=== PATIENT | female | born 2005 | race Caucasian/White ===

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

== ENCOUNTER 2023-01-04 12:04 | Outpatient (CLI) | payer SELFPAY ==
[2023-01-06 11:30] LABS: TB Interpretation Negative (Negative); TB1 Ag minus Nil 0.01 IU/ml
[2023-01-06 12:10] LABS: HBs Antibody, Quant 3.5 mIU/mL (See Note); Hepatitis B Surface Ab Negative (See Note)
== END 2023-01-04 12:05 | disposition home or self-care (01) ==
LOC: LBO 12:06
PROVIDERS: Visit Provider Nurse Practitioner Family
DX: Z02.1 Encounter for pre-employment examination (principal); Z11.59 Encounter for screening for other viral diseases; Z11.1 Encounter for screening for respiratory tuberculosis
CPT/HCPCS: 36415; 86706; 86480

== ENCOUNTER 2023-04-01 10:05 | Emergency (ER) | payer MEDICAID, SELFPAY ==
[2023-04-01 10:09] VITALS: BP 124/75; PULSE 117; RESP 18; TEMP 37; O2SAT 99
--- NOTE | 2023-04-01 10:55 | ED.GENADUL_ITS ---
Discharge Plan Disposition Patient Disposition: Home Discharge Details Clinical Impression: Pharyngitis Primary Care Provider: Unknown,Unknown ED Provider: Baltazar Eller Home Meds and New Rx's Prescriptions: Continued acetaminophen [Tylenol Extra Strength] 500 mg tablet 500 mg PO Q4H PRN (DME) Space Chamber Plus 1 EACH spacer 1 ea Miscellaneous Q4H PRN Qty: 2 Rx Instructions: no mask please, use with flovent and albuterol needs 1 mom's and 1 at dad's albuterol sulfate [ProAir HFA] 90 mcg/actuation HFA aerosol inhaler 2 puff Inhalation Q4H PRN Qty: 2 Rx Instructions: 2 puffs with spacer every 4hr as needed and prior to activity albuterol sulfate 90 mcg/actuation aerosol powdr breath activated 2 inh inhalation Q6H PRN (Reason: shortness of breath or wheezing) Qty: 1 1RF Discharge Instructions Instructions: Pharyngitis (ED) Additional Instructions: Please take your vitamin daily. Please take acetaminophen (tylenol) - 650mg every 6 hours by mouth as needed for pain. Please drink plenty of fluids and allow for plenty of rest. Please contact your primary care physician to arrange follow-up. Return to the ER immediately for any worsening or new concerning symptoms. Stand Alone Forms: Work Release Medical Decision Making 17-year-old female who is at 11 weeks here with pharyngitis and myalg ias with subjective fever over the past 2 to 3 days. Patient has few scattered posterior oropharyngeal shallow ulcers. No signs of deep space infection. Patient afebrile, saturating well, no respiratory distress, hemodynamically stable. Rapid COVID testing negative. Rapid flu negative. Plan for PCR COVID testing. Will also check mono. Supportive care recommended. Usual customary discharge instructions reviewed with the patient. HPI General Mode of arrival: ambulatory . Date/Time Provider Initiated Documentation: 04/01/23 10:18 . Limitations to Documentation: no limitations . Information obtained by: patient . HPI Narrative: 17-year-old female presents with chief complaint of sore throat. Patient notes sore throat, myalgias, fatigue and subjective fever over the past few days. No known sick contacts. COVID test negative at home. Related Data Home Medications Medication Instructions Recorded Confirmed inhalational spacing device (Space ##2 06/03/16 04/01/23 Chamber Plus) acetaminophen 500 mg tablet 500 mg PO Q4H PRN 02/23/19 04/01/23 (Tylenol Extra Strength) albuterol sulfate 90 mcg/actuation 2 puff inhalation Q4H PRN ##2 05/14/21 04/01/23 aerosol inhaler (ProAir HFA) albuterol sulfate 90 mcg/actuation 2 inh inhalation Q6H PRN shortness 05/14/21 04/01/23 breath activated powder inhaler of breath or wheezing #1 ea Previous Rx's Medication Instructions Recorded albuterol sulfate 90 mcg/actuation 2 inh inhalation Q6H PRN shortness 05/14/21 breath activated powder inhaler of breath or wheezing #1 ea Allergies Allergy/AdvReac Type Severity Reaction Status Date / Time amoxicillin Allergy Mild Face Verified 04/01/23 10:11 turned bright red, sunburn-like rash on face and leg erythromycin base Allergy rash Verified 04/01/23 10:11 General Stated Complaint: Sorethroat RAFAEL: 4 Review of Systems Constitutional Constitutional: Reports as per HPI and Reports fever(s) ENT Ears, Nose, Mouth, and Throat: Reports as per HPI Respiratory Respiratory: Denies cough PFSH All Active Problems Pharyngitis (Acute) Contraceptive management (Acute) Xulane patch 11/01/2022 Depression (Chronic) hx of meds Anxiety (Chronic) Insomnia (Acute) Hematuria (Acute) History of kidney stones (Acute) Medical History Obstruction of left ureteropelvic junction (UPJ) due to stone Kidney disorder Pt. states I had kidney reflux really bad with I was little (No other description) COVID currently positive as of 12/27/21 very sore throat, and my chest feels really tight with some SOB, no fever. 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 checked by pediatric radiologist at [facility] who felt thymus was normal in size. no further intervention necessary Influenza B Migraine with aura Asthma Surgical History History of appendectomy Tonsillectomy and adenoidectomy Family History Mother Asthma as child Depression Father Migraines Mental disorder depression/anxiety Alcohol abuse Depression Other Migraines PGM Diabetes MGM Alcohol abuse paternal side Essential hypertension PGF, PGGF Personal history of malignant neoplasm MGGM-brain, MGU-ear, Mcousin-nose/brain Mental disorder MGM Stroke PGGF Asthma MGM Dementia Maternal Cousin Vesicoureteral reflux with resulting kidney disease, unilateral Social History Smoking/Tobacco Use Status: Never Smoking risk assessment performed?: Yes Alcohol Intake: never Drug use: Never Substance use type: does not use Education Level: high school Details: 07/19/18- Freshman at [employer] Pets and animals: Yes Pets and animals: dog(s) and fish Current gender identity: female Do you feel safe at home: Yes Do you feel safe in your relationship?: Yes History History 1 Para 1 Hx # Term Pregnancies 1 Multiple births Hx # Pregnancies Ectopic pregnancies AB induced Hx Number of Living Children 1 AB spontaneous Past Pregnancies Del. Date GA/Weeks # Preg Succ Route Wgt Sex Labor Lgth Anesth esia Location [facility] 06/30/21 39 No vaginal 3458.642 g Male 22 hours 44 min region ma [place] Isela CNM Delivery Date: 06/30/21 Last Updated by: Varsha Cabezas Apgars 5/7/9 Exam Const General: cooperative and no acute distress HENMA Mouth: moist mucous membranes Throat: uvula midline, no peritonsillar masses and posterior oropharynx abnormal erythema (mild, few 1mm shallow ulcers); no edema and no exudates Eyes Conjunctivae: normal conjunctivae Sclera: normal sclerae Neck Neck: trachea midline, supple and lymphadenopathy (mild cervical ) Resp Auscultation: clear to auscultation bilaterally, no rales, no rhonchi and no wheezes Cardio Rate: regular rate and not tachycardic Rhythm: regular rhythm Skin General skin exam: no rashes or lesions noted Neuro General: patient alert, patient awake and tone normal Course Vital Signs Vital signs: Vital Signs Temperature 37 C 04/01/23 10:09 Pulse 117 H 04/01/23 10:09 Respiratory Rate 18 04/01/23 10:09 Blood Pressure 124/75 04/01/23 10:09 Pulse Oximetry 99 04/01/23 10:09 Temperature 37 C 04/01/23 10:09 Temperature Source Skin 04/01/23 10:09 Pulse 117 H 04/01/23 10:09 Respiratory Rate 18 04/01/23 10:09 Respiratory Effort Normal, Non-Labored 04/01/23 10:12 Blood Pressure 124/75 04/01/23 10:09 Blood Pressure Position Sitting 04/01/23 10:09 Pulse Oximetry 99 04/01/23 10:09 Oxygen Delivery Method Room Air 04/01/23 10:09 Oxygen Flow Rate 0 04/01/23 10:09 Pain Level 7 04/01/23 10:09 Lab/Test Results Lab/Test Results: 04/01/23 10:20 Tonsil - Not Specified Group A Streptococcus Culture - Pending POC Strep Test-HUAN(Rapid) Start: 04/01/23 10:16 Freq: Status: Active Protocol: Document 04/01/23 10:22 TOBIAS (Rec: 04/01/23 10:22 TOBIAS [id number]) Strep test-HUAN(Rapid)-POC POC-Strep test-HUAN (Rapid) Negative POC-Strep test-HUAN (Rapid) Negative
[2023-04-01 11:16] LABS: Mono Screening Negative (Negative)
[2023-04-01 11:19] LABS: COVID-19 PCR Negative (Negative); Influenza A PCR Negative (Negative); Influenza B PCR Negative (Negative); RSV PCR Negative (Negative)
[2023-04-01 11:30] LABS: Source Nasopharynx
== END 2023-04-01 11:06 | disposition home or self-care (01) ==
PROVIDERS: Emergency Provider Student in an Organized Health Care Education/Training Program
DX: O99.511 Diseases of the respiratory system complicating pregnancy, first trimester (principal); J02.9 Acute pharyngitis, unspecified; Z3A.11 11 weeks gestation of pregnancy
CPT/HCPCS: 81025; 87426; 87637; 99283; 86308; 87081

== ENCOUNTER 2023-04-24 13:15 | Emergency (ER) | payer MEDICAID, SELFPAY ==
[2023-04-24 13:22] VITALS: BP 116/75; PULSE 94; O2SAT 100
[2023-04-24 13:34] LABS: Bilirubin Negative (Negative); Blood Negative (Negative); Clarity Clear (Clear); Glucose Negative (Negative); Ketones >=160 mg/dL (Negative); Leukocyte Esterase Negative (Negative); Nitrite Negative (Negative); Specific Gravity 1.025 (1.005-1.025); Urobilinogen 0.2 mg/dL (Up to 0.2)
--- NOTE | 2023-04-24 14:11 | ED.GENADUL_ITS ---
HPI General Stated Complaint: Abd Prob Mode of arrival: ambulatory. RAFAEL: 3 Date/Time Provider Initiated Documentation: 04/24/23 13:37. Limitations to Documentation: no limitations. Information obtained by: patient and family. HPI Narrative: Time seen was 1:40 PM in bed 7. The patient is a 17-year-old -0-0-1 who is 15 weeks by dates and followed here as a new patient by OB/GYNs. The patient's first was complicated by calcium oxalate renal calculi and she required lithotripsy following her delivery. She presents today with 4 days of left-sided low back pain and left lower pelvic pain. The pain has been associated with hematuria which was demonstrated to me by the patient with a photo from her phone. She states that the pain waxes and wanes. She feels as t maggie it is aggravated by food. Currently the pain is 6 out of 10 in severity and she denies any radiation down her legs. She denies any vaginal bleeding or dysuria. She denies any saddle anesthesia. She denies any fevers or chills. She denies any abdominal cramps or spotting. She is not associated nausea and vomiting. She states that her previous renal colic was treated with Flomax and that she did strain her urine and was found to have calcium oxalate stones. She has been taking acetaminophen with minimal relief. Her last dose was last night. Currently pain is 6 out of 10 in severity. She denies any chest pain, numbness tingling or weakness. Related Data Home Medications Medication Instructions Recorded Confirmed inhalational spacing device (Space ##2 06/03/16 04/01/23 Chamber Plus) acetaminophen 500 mg tablet 500 mg PO Q4H PRN 02/23/19 04/24/23 (Tylenol Extra Strength) albuterol sulfate 90 mcg/actuation 2 puff inhalation Q4H PRN ##2 05/14/21 04/24/23 aerosol inhaler (ProAir HFA) albuterol sulfate 90 mcg/actuation 2 inh inhalation Q6H PRN shortness 05/14/21 04/24/23 breath activated powder inhaler of breath or wheezing #1 ea hydrocodone 2.5 mg-acetaminophen 1 tab PO Q6H PRN pain not releaved 04/24/23 325 mg tablet by acetaminophen #20 tabs hydrocodone 5 mg-acetaminophen 325 1 tab PO Q6H PRN pain not releaved 04/24/23 mg tablet by acetaminophen #10 tabs ondansetron 4 mg disintegrating 4 mg PO Q4H PRN 3 doses #14 tabs 04/24/23 tablet sertraline 25 mg tablet (Zoloft) 25 mg PO DAILY 04/24/23 04/24/23 tamsulosin 0.4 mg capsule (Flomax) 0.4 mg PO QHS PRN #14 caps 04/24/23 Previous Rx's Medication Instructions Recorded albuterol sulfate 90 mcg/actuation 2 inh inhalation Q6H PRN shortness 05/14/21 breath activated powder inhaler of breath or wheezing #1 ea hydrocodone 2.5 mg-acetaminophen 1 tab PO Q6H PRN pain not releaved 04/24/23 325 mg tablet by acetaminophen #20 tabs hydrocodone 5 mg-acetaminophen 325 1 tab PO Q6H PRN pain not releaved 04/24/23 mg tablet by acetaminophen #10 tabs ondansetron 4 mg disintegrating 4 mg PO Q4H PRN 3 doses #14 tabs 04/24/23 tablet tamsulosin 0.4 mg capsule (Flomax) 0.4 mg PO QHS PRN #14 caps 04/24/23 Allergies Allergy/AdvReac Type Severity Reaction Status Date / Time amoxicillin Allergy Mild Face Verified 04/24/23 13:35 turned bright red, sunburn-like rash on face and leg erythromycin base Allergy rash Verified 04/24/23 13:35 Review of Systems Narrative: see hpi PFSH All Active Problems (Updated 04/24/23 @ 15:30 by Joan Reyes MD) Back pain (Acute) Abdominal pain (Acute) Dehydration during (Acute) Kidney stones, calcium oxalate (Acute) Second trimester (Acute) Renal colic on left side (Acute) Pharyngitis (Acute) Contraceptive management (Acute) Xulane patch 11/01/2022 Depression (Chronic) hx of meds Anxiety (Chronic) Insomnia (Acute) Hematuria (Acute) History of kidney stones (Acute) Medical History Obstruction of left ureteropelvic junction (UPJ) due to stone Kidney disorder Pt. states I had kidney reflux really bad with I was little (No other description) COVID currently positive as of 12/27/21 very sore throat, and my chest feels really tight with some SOB, no fever. 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 checked by pediatric radiologist at [facility] who felt thymus was normal in size. no further intervention necessary Influenza B Migraine with aura Asthma Surgical History History of appendectomy Tonsillectomy and adenoidectomy Family History Mother Asthma as child Depression Father Migraines Mental disorder depression/anxiety Alcohol abuse Depression Other Migraines PGM Diabetes MGM Alcohol abuse paternal side Essential hypertension PGF, PGGF Personal history of malignant neoplasm MGGM-brain, MGU-ear, Mcousin-nose/brain Mental disorder MGM Stroke PGGF Asthma MGM Dementia Maternal Cousin Vesicoureteral reflux with resulting kidney disease, unilateral Social History Smoking/Tobacco Use Status: Never Smoking risk assessment performed?: Yes Alcohol Intake: never Drug use: Never Substance use type: does not use Education Level: high school Details: 07/19/18- Freshman at [employer] Pets and animals: Yes Pets and animals: dog(s) and fish Current gender identity: female Do you feel safe at home: Yes Do you feel safe in your relationship?: Yes History History 1 Para 1 Hx # Term Pregnancies 1 Multiple births Hx # Pregnancies Ectopic pregnancies AB induced Hx Number of Living Children 1 AB spontaneous Past Pregnancies Del. Date GA/Weeks # Preg Succ Route Wgt Sex Labor Lgth Anesth esia Location Prov [facility] 06/30/21 39 No vaginal 3458.642 g Male 22 hours 44 min region liliana Natarajan [facility] Delivery Date: 06/30/21 Last Updated by: Varsha Cabezas Apgars 5/7/9 Exam Narrative Exam Narrative: The patient is a well-developed well-nourished female lying on the stretcher. She looks slightly uncomfortable but does not appear in acute distress. Blood pressure is 116/75. Heart rate is 94. She does not appear tachypneic. Temperatures are recorded her room air O2 sat is 100% on room air. Her GCS is 1 5. Const General: cooperative, healthy appearing, well developed and well groomed Nutritional Appearance: average body habitus and well nourished Orientation: alert, awake and oriented x3 HENMT Head: normal to inspection, normocephalic and atraumatic Ears: hearing grossly normal bilaterally and external ears normal General nose exam: external nose normal, nares normal and no nasal discharge Face and sinus: normal facial exam and face symmetric Mouth: other (Mucous membranes are slightly dry ) Throat: posterior oropharynx normal and uvula midline Eyes General: appearance normal, both eyes and all related structures Eyelids: eyelids normal Conjunctivae: conjunctivae normal Sclera: sclerae normal Cornea: corneas normal Pupils: PERRL EOM: EOM intact bilaterally and No nystagmus Neck Neck: normal visual inspection, full ROM, no lymphadenopathy, no meningeal signs, trachea midline and supple Lymphatic: no lymphadenopathy noted Resp Effort & Inspection: normal respiratory effort, able to speak in complete sentences, no audible wheezes, no nasal flaring, no respiratory distress, no retractions, no stridor, not tachypneic, no tracheal deviation, no use of accessory muscles, No prolonged expiratory phase and other (Normal inspiratory to expiratory ratio.) Auscultation: clear to auscultation bilaterally, no rales, no rhonchi, no wheezes and no rubs Tactile Fremitus: tactile fremitus absent Cardio Jugular venous pressure: no JVD Palpation: normal PMI Rate: regular rate Rhythm: regular rhythm Heart Sounds: S1 normal, S2 normal, no gallops, no murmurs and no rubs GI Inspection: normal to inspection and non-distended Palpation: soft, no hepatosplenomegaly, no guarding and nontender Percussion: normal to percussion Auscultation: normal bowel sounds General: No CVA tenderness Back/Spine/Pelvis Back: no CVA tenderness and No back tenderness Cervical Spine: normal cervical lordosis, cervical ROM normal, No cervical muscular tenderness, No pain with cervical ROM, No cervical spinal tenderness and No step off deformity Thoracic/Lumbar Spine: thoracic and lumbar spine normal to inspection, No thoracic spinal tenderness and No lumbar spinal tenderness Skin General skin exam: no rashes or lesions noted, turgor normal, no petechiae, no purpura and other (Skin is normal for ethnicity.) Lesions: no lesions Rashes: no rashes Trauma: no lacerations or abrasions Neuro General: patient alert, patient awake, patient oriented x3, moves all extremities, no meningeal signs, no focal motor deficits and CN's II-XI intact bilaterally Cranial Nerves: CN's II-XI intact bilaterally, PERRL, accommodation normal, EOM intact bilaterally, no nystagmus, facial strength normal, tongue midline, hearing normal and no nystagmus Cognition: normal cognition Speech: speech normal Gait: normal gait Motor: muscle tone normal throughout and strength 5/5 throughout Sensory Exam: no sensory deficits noted Extrem General: normal to inspection, full ROM, capillary refill normal, no clubbing, cyanosis or edema and no calf tenderness Psych Appearance: grossly normal Affect: normal affect Attitude: cooperative Thought Process: normal Thought Content: normal Insight: insight good Judgment: judgment good Other: The patient appears to have capacity make medical decisions. Course 3:06 PM I have done an unofficial bedside ultrasound which demonstrated some hydronephrosis on the left and excellent movement and excellent heartbeat. Urology is not available for consultation today but I we will consult OB regarding follow-up. My plan is to discharge the patient with Flomax, Zofran and the hydrocodone. I have advised the patient that hydrocodone can be habit-forming. That it causes somnolence and constipation, and I advised her not to drink alcohol drive, operate heavy machinery or make important decisions while taking this medication. The patient voiced understanding and agreement. 3:23 PM I have updated the patient on the lab results and I have spoken with Dr. Marta Benjamin, who agreed with the plan for urology follow-up and [facility] follow- up. I have filled out the form for narcotic prescriptions. 1618 p.m. pharmacy [facility] from [facility] called me and told me they did not have any hydrocodone 2.5 mg and asked that I we write a prescription for the hydrocodone 5 mg/acetaminophen 325 mg. I have rewritten the prescription and sent it electronically. Vital Signs Vital signs: Vital Signs Pulse 94 H 04/24/23 13:22 Blood Pressure 116/75 04/24/23 13:22 Pulse Oximetry 100 04/24/23 13:22 Pulse 94 H 04/24/23 13:22 Respiratory Effort Normal, Non-Labored 04/24/23 13:31 Blood Pressure 116/75 04/24/23 13:22 Blood Pressure Position Sitting 04/24/23 13:22 Pulse Oximetry 100 04/24/23 13:22 Oxygen Delivery Method Room Air 04/24/23 13:22 Oxygen Flow Rate 0 04/24/23 13:22 Pain Level 6 04/24/23 13:31 Lab/Test Results Lab/Test Results: Laboratory Tests Range/Units 04/24/23 13:28 Urine Color (Yellow) Yellow Urine Clarity (Clear) Clear Urine pH (5-8) 7.0 Ur Specific [place] (1.005-1.025) 1.025 Urine Protein (Negative) mg/dL Negative Urine Ketones (Negative) mg/dL >=160 H Urine Blood (Negative) Negative Urine Nitrite (Negative) Negative Urine Bilirubin (Negative) Negative Urine Urobilinogen (Up to 0.2) mg/dL 0.2 Ur Leukocyte Esterase (Negative) Negative Urine Glucose (Negative) mg/dL Negative Medical Decision Making This is a 17-year-old female who is 15 weeks , who presents with left lower back pain and left lower pelvic pain associated with hematuria. The patient's first was complicated by calcium oxalate renal calculi and she did require lithotripsy following her delivery. She has had hematuria and denies any vaginal bleeding. She has had anorexia and nausea and vomiting associated with the pain. She denies any fevers or chills. It is unusual to have renal colic that is postprandial. But she does not have any right upper quadrant abdominal pain or tenderness. It is possible that she has gastritis or peptic ulcer but given that she states this pain is similar to her previous renal colic and given that she has had hematuria it makes a gastric etiology le ss likely. She also has no epigastric pain or tenderness. Her pain is located in the left lumbar region and in the left lower pelvis. She does appear slightly dehydrated. My plan is to establish an IV and give her IV fluids Zofran and acetaminophen. I will do an informal bedside ultrasound since formal ultrasound is not available and we will check lab work including CBC although she does not appear anemic and is not tachycardic. Will check a urine for infection though she has not had a fever or dysuria. I will check her renal function and give her Zofran for nausea. After shared decision-making as well as review of Flomax and we have elected to give her Flomax. I will caution her about orthostatic hypotension associated with it. We will rehydrate her and get her comfortable I will consult OB. Urology is not available today. If she does not have evidence of infection I will discharge her home with outpatient follow-up with urology and OB. I do not think that she has an ectopic given she is 15 weeks and I have no reason to believe that she has an STI or colitis. The patient and her mother voiced understanding and agreement with the plan Differential Diagnosis Differential Diagnosis: Second trimester , renal colic, low back pain, left lower quadrant Medical Records Medical records reviewed: Yes I reviewed the patient's medical records. Lab Data Lab results reviewed: Yes I reviewed the patient's lab results. Lab results narrative: Mild dehydration, no evidence of UTI Quality:[facility] Health Related Social Needs: No Data to Display Discharge Plan Disposition Patient Disposition: Home Discharge Details Clinical Impression: Renal colic on left side, Hematuria, Second trimester , Kidney stones, calcium oxalate, Dehydration during , Abdominal pain, Back pain Primary Care Provider: Unknown,Unknown ED Provider: Joan Reyes Home Meds and New Rx's Prescriptions: New ondansetron 4 mg tablet,disintegrating 4 mg PO Q4H PRNQty: 14 0RF Rx Instructions: 1st dose 1-2 hr before radiation tamsulosin [Flomax] 0.4 mg capsule 0.4 mg PO QHS PRNQty: 14 0RF hydrocodone-acetaminophen 2.5-325 mg tablet 1 tab PO Q6H PRN (Reason: pain not releaved by acetaminophen) Qty: 20 0RF hydrocodone-acetaminophen 5-325 mg tablet 1 tab PO Q6H PRN (Reason: pain not releaved by acetaminophen) Qty: 10 0RF Rx Instructions: May take 1/2 - 1 tab as needed. This may causes drowsiness and constipation, do not drink alcohol, operate heavy machinery, drive or make important decisions while on this medication. It can be habit forming. No Action acetaminophen [Tylenol Extra Strength] 500 mg tablet 500 mg PO Q4H PRN (DME) Space Chamber Plus 1 EACH spacer 1 ea Miscellaneous Q4H PRN Qty: 2 Rx Instructions: no mask please, use with flovent and albuterol needs 1 mom's and 1 at dad's albuterol sulfate [ProAir HFA] 90 mcg/actuation HFA aerosol inhaler 2 puff Inhalation Q4H PRN Qty: 2 Rx Instructions: 2 puffs with spacer every 4hr as needed and prior to activity albuterol sulfate 90 mcg/actuation aerosol powdr breath activated 2 inh inhalation Q6H PRN (Reason: shortness of breath or wheezing) Qty: 1 1RF sertraline [Zoloft] 25 mg tablet 25 mg PO DAILY Discharge Instructions Instructions: Dehydration (ED), Renal Colic (ED), at 11 to 14 Weeks (ED) Additional Instructions: 1. Take acetaminophen as needed for pain. Take hydrocodone/acetaminophen 1 to 2 tablets. Pain not relieved by acetaminophen alone. Do not drink alcohol, drive, operate heavy machinery or make important decisions while taking this medication. This medication can be habit-forming and can cause drowsiness and constipation. 2. Follow-up with urology, [facility] and you will be contacted for an outpatient renal ultrasound. You should also be contacted by the urology office for an appointment. If you have not heard from them over the [facility] in 1 to 2 days call them for follow-up appointment. 3. Drink plenty of fluids and return here for any new or worrisome symptoms such as fevers, chills or any other concerns. 4. I have called in a prescription for Flomax to help for potential kidney stone. This can cause dizziness if you get up too quickly from a sitting or lying position to standing. 5. Strain your urine and bring any stones with you to your urology appointment. 6. Return here for any new or worrisome symptoms. Discharge Data Discharge Date/Time-TO BE ENTERED AT DEPARTURE: 04/24/23 15:58 Discharge Physician: Joan Reyes
[2023-04-24] MEDS: Tamsulosin 0.4 MG CAPCR PO (14:41)
[2023-04-24] MEDS: ACETAMINOPHEN 1,000 MG/100 ML BTL 400 MG IVPB (14:41)
[2023-04-24] MEDS: Ondansetron 4 MG/2 ML VIAL IVP (14:41)
[2023-04-24] MEDS: Normal Saline 1,000 ML 1000 ML IV (14:41)
[2023-04-24 14:52] LABS: Abs Immature Grans 0.03 10^3/uL (0.0-0.06); Absolute Basophil Count 0.01 10^3/uL (0.0-0.2); Absolute Eosinophil Count 0.02 10^3/uL (0.0-0.7); Absolute Lymphocyte Count 2.26 10^3/uL (1.2-3.4); Absolute Neutrophil Count 4.51 10^3/uL (1.2-6.7); Basophils % 0.1; Eosinophils % 0.3; HCT 36.8 % (36.0-46.0); HGB 12.6 g/dL (11.2-15.7); Immature Grans % 0.4; Lymphocytes % 30.4; MCH 30.1 pg (27.0-33.0); MCHC 34.2 % (32.0-36.0); MCV 88 fL (80-95); MPV 9.1 fL (8.0-11.0); Monocytes % 8.1; Neutrophils % 60.7; Platelet Count 291 10^3/uL (130-400); RBC 4.19 10^6/uL (3.93-5.22); RDW 12.4 % (11.7-14.6); RDW-SD 38.9 fL; WBC 7.43 10^3/uL (4.4-10.8)
[2023-04-24 15:02] LABS: ALT 21 U/L (14-59); AST 12 U/L (15-37); Albumin 2.9 g/dL (3.4-5.0); Alkaline Phosphatase 54 U/L (46-116); BUN 5 mg/dL (7-18); Bilirubin, Total 0.2 mg/dL (0.2-1.0); CREATININE 0.5 mg/dL (0.55-1.02); Calcium 8.8 mg/dL (8.5-10.1); Chloride 104 mmol/L (98-107); Estimated GFR 138.47 (mL/min/1.73m2); Glucose 86 mg/dL (74-106); Potassium 3.5 mmol/L (3.5-5.1); Sodium 137 mmol/L (136-145); Total Protein 6.7 g/dL (6.4-8.2)
--- NOTE | 2023-04-24 16:04 | NUR.NOTE ---
Request faxed to for left renal ultrasound for probable renal colic 15wks . To be done this week and follow up with [facility] Urology and OB. Nursing Note:
== END 2023-04-24 15:58 | disposition home or self-care (01) ==
PROVIDERS: Emergency Provider Emergency Medicine Emergency Medical Services
DX: R10.32 Left lower quadrant pain (principal); O99.280 Endocrine, nutritional and metabolic diseases complicating pregnancy, unspecified trimester; E86.0 Dehydration; M54.9 Dorsalgia, unspecified; N20.0 Calculus of kidney; Z34.92 Encounter for supervision of normal pregnancy, unspecified, second trimester
CPT/HCPCS: 36415; 80053; 96361; 96365; 96375; 99284; 81003; 85025; 99283; J0131; J2405

== ENCOUNTER → 2023-05-23 01:53 | Outpatient (CLI) | payer MEDICAID, SELFPAY ==
--- NOTE | 2023-05-23 07:00 | DI.US_ITS ---
Exam(s) US OB 2-3 TRIMESTER EXAM: US OB 2-3 TRIMESTER CLINICAL HISTORY: survey,z34.90. TECHNIQUE: Transabdominal obstetrical ultrasound was performed. COMPARISON: US US RENAL from 03/19/2022 FINDINGS: There is a single viable intrauterine gestation with cardiac activity identified-153 bpm. Amniotic fluid: There is a normal amount of amniotic fluid. Placental location: The placenta is anterior grade 1,with no evidence of placenta previa.Distance fro m the tip of placenta to the internal cervical os is 4.5 cm on today's examination. Distant from the cord insertion to the placental margin is 5 cm. ANATOMY: A 3 vessel umbilical cord is seen. A four-chamber cardiac view was obtained. Right and left ventricular outflow tracts were imaged. There are no obvious abnormalities of the spinal column evident. There is no obvious abnormal ity of the anterior abdominal wall. stomach and urinary bladder are identified and there is no evidence of hydronephrosis. No abnormalities of the upper lip region are identified. No evidence of choroid plexus cysts i n the brain. Dating parameters place this at approximately 19 weeks and 2 days gestational age. BPD measures 19 weeks and 2 days HC measures 19 weeks and 3 days AC measures 19 weeks and 2 days FL measures 19 weeks and 2 days Estimated weight is 283 gm-0 pounds, 10 ounces. Fetus is at the 50 second percentile on the Hadlock scale. IMPRESSION:: Single viable intrauterine gestation which is approximately 19 weeks and 2 days gestati onal age, implying an JENNIFER of 10/15/2023. There are no obvious anomalies evident on today's study. The placenta is anterior grade 1 with no evidence of placenta previa. There is a normal amount of amniotic fluid. DATA REPOSITORY:
== END ==
PROVIDERS: Visit Provider Advanced Practice Midwife
DX: Z34.92 Encounter for supervision of normal pregnancy, unspecified, second trimester (principal)
CPT/HCPCS: 76805

== ENCOUNTER 2023-07-05 11:41 | Emergency (ER) | payer MEDICAID, SELFPAY ==
[2023-07-05 11:48] VITALS: BP 130/69; PULSE 91; RESP 20; TEMP 36.4; O2SAT 100
--- NOTE | 2023-07-05 12:24 | W.ED.GENAD ---
Discharge Plan Disposition Patient Disposition: Home Condition: Stable Discharge Details Chief Complaint: Nk/Back Pain Clinical Impression: Back pain Primary Care Provider: Unknown,Unknown ED Provider: Edward Navarrete Home Meds and New Rx's Prescriptions: No Action ondansetron HCl 4 mg tablet 4 mg PO Q6H PRN (Reason: nausea and vomiting) Qty: 30 3RF acetaminophen [Tylenol Extra Strength] 500 mg tablet 500 mg PO Q4H PRN (DME) Space Chamber Plus 1 EACH spacer 1 ea Miscellaneous Q4H PRN Qty: 2 Rx Instructions: no mask please, use with flovent and albuterol needs 1 mom's and 1 at dad's albuterol sulfate [ProAir HFA] 90 mcg/actuation HFA aerosol inhaler 2 puff Inhalation Q4H PRN Qty: 2 Rx Instructions: 2 puffs with spacer every 4hr as needed and prior to activity albuterol sulfate 90 mcg/actuation aerosol powdr breath activated 2 inh inhalation Q6H PRN (Reason: shortness of breath or wheezing) Qty: 1 1RF sertraline [Zoloft] 25 mg tablet 25 mg PO DAILY Discharge Instructions Instructions: Back Pain (ED) Stand Alone Forms: Work Release HPI General Date/Time Provider Initiated Documentation: 07/05/23 11:42. HPI Narrative: 17-year-old female 25 weeks presents with left flank pain history of kidney stones, denies vaginal bleeding or discharge, denies nausea or vomiting. Took Tylenol at home. Related Data Home Medications Medication Instructions Recorded Confirmed inhalational spacing device (Space ##2 06/03/16 07/05/23 Chamber Plus) acetaminophen 500 mg tablet 500 mg PO Q4H PRN 02/23/19 07/05/23 (Tylenol Extra Strength) albuterol sulfate 90 mcg/actuation 2 puff inhalation Q4H PRN ##2 05/14/21 07/05/23 aerosol inhaler (ProAir HFA) albuterol sulfate 90 mcg/actuation 2 inh inhalation Q6H PRN shortness 05/14/21 07/05/23 breath activated powder inhaler of breath or wheezing #1 ea sertraline 25 mg tablet (Zoloft) 25 mg PO DAILY 04/24/23 07/05/23 ondansetron HCl 4 mg tablet 4 mg PO Q6H PRN nausea and 05/23/23 07/05/23 vomiting #30 tabs Previous Rx's Medication Instructions Recorded albuterol sulfate 90 mcg/actuation 2 inh inhalation Q6H PRN shortness 05/14/21 breath activated powder inhaler of breath or wheezing #1 ea ondansetron HCl 4 mg tablet 4 mg PO Q6H PRN nausea and 05/23/23 vomiting #30 tabs Allergies Allergy/AdvReac Type Severity Reaction Status Date / Time Penicillins Allergy Intermediate Hives Verified 07/05/23 11:56 amoxicillin Allergy Mild Face Verified 07/05/23 11:56 turned bright red, sunburn-like rash on face and leg erythromycin base Allergy rash Verified 07/05/23 11:56 General Stated Complaint: Nk/Back Pain RAFAEL: 3 Review of Systems Narrative: Review of Systems Constitutional: negative Eyes: negative ENT: negative Cardiovascular: negative Respiratory: negative Gastrointestinal: negative : negative Musculoskeletal: Back pain Skin: negative Neurologic: negative Psych: negative Exam Narrative Exam Narrative: Physical Examination General: alert, awake, cooperative, resting comfortably, no acute distress HEENT: normocephalic, atraumatic; PERRL, EOM intact, conjunctiva normal; no nasal discharge; moist mucous membranes, oral and pharyngeal mucosa normal, tolerating secretions Neck: supple, trachea midline; full ROM Chest: normal to inspection Respiratory: normal respiratory effort, speaking in full sentences Skin: no lesions, rashes or trauma appreciated Neuro: AAOx3, normal speech, moving all extremities Psych: Appropriate mood and affect Course Vital Signs Vital signs: Vital Signs Temperature 36.4 C L 07/05/23 11:48 Pulse 91 H 07/05/23 11:48 Respiratory Rate 20 07/05/23 11:48 Blood Pressure 130/69 07/05/23 11:48 Pulse Oximetry 100 07/05/23 11:48 Temperature 36.4 C L 07/05/23 11:48 Pulse 91 H 07/05/23 11:48 Respiratory Rate 20 07/05/23 11:48 Blood Pressure 130/69 07/05/23 11:48 Pulse Oximetry 100 07/05/23 11:48 Oxygen Delivery Method Room Air 07/05/23 11:48 Oxygen Flow Rate 0 07/05/23 11:48 Pain Level 7 07/05/23 11:48 Comment movement makes pain worse 07/05/23 11:48 Medical Decision Making 17-year-old female at 25 weeks gestation presents with left flank pain, nonradiating, no associated nausea vomiting or fevers, history of kidney stones in the past. No signs of trauma. Hemodynamically stable afebrile nontoxic. Resting comfortably currently. Took Tylenol at home. Consider musculoskeletal strain versus pelvic ligamentous laxity versus UTI versus early pyelonephritis less likely versus nephrolithiasis. Screening urinalysis. 12: 46 patient resting comfortably no acute distress. No hematuria. Likely contaminated urine sample given squames. No urinary symptomatology. Will send urine culture. High clinical suspicion for musculoskeletal versus pelvic ligamentous laxity given stage of . Strict return precautions for infectious symptoms or other worsening symptoms given. Patient to follow closely with [facility] Quality:SDOH Health Related Social Needs: No Data to Display PFSH All Active Problems (Updated 07/05/23 @ 12:47 by Edward Navarrete MD) Back pain (Acute) (Acute) Depression (Chronic) hx of meds Anxiety (Chronic) Insomnia (Acute) Medical History (Updated 07/05/23 @ 12:47 by Edward Navarrete MD) Contraceptive management Xulane patch 11/01/2022 History of kidney stones Hematuria Obstruction of left ureteropelvic junction (UPJ) due to stone Kidney disorder Pt. states I had kidney reflux really bad with I was little (No other description) COVID currently positive as of 12/27/21 very sore throat, and my chest feels really tight with some SOB, no fever. 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 checked by pediatric radiologist at [facility] [place] who felt thymus was normal in size. no further intervention necessary Influenza B Migraine with aura Asthma Surgical History History of appendectomy Tonsillectomy and adenoidectomy Family History Mother Asthma as child Depression Father Migraines Mental disorder depression/anxiety Alcohol abuse Depression Other Migraines PGM Diabetes MGM Alcohol abuse paternal side Essential hypertension PGF, PGGF Personal history of malignant neoplasm MGGM-brain, MGU-ear, Mcousin-nose/brain Mental disorder MGM Stroke PGGF Asthma MGM Dementia Maternal Cousin Vesicoureteral reflux with resulting kidney disease, unilateral Social History Smoking/Tobacco Use Status: Never Smoking risk assessment performed?: Yes Alcohol Intake: never Drug use: Never Substance use type: does not use Education Level: high school Details: 07/19/18- Freshman at [employer] Pets and animals: Yes Pets and animals: dog(s) and fish Current gender identity: female Do you feel safe at home: Yes Do you feel safe in your relationship?: Yes History History 2 Para 1 Hx # Term Pregnancies 1 Multiple births 0 Hx # Pregnancies 0 Ectopic pregnancies 0 AB induced 0 Hx Number of Living Children 1 AB spontaneous 0 Past Pregnancies Del. Date GA/Weeks # Preg Succ Route Wgt Sex Labor Lgth Anesthesia Location Prov Complic 06/30/21 39 No Yes vaginal 3458.642 g Male 22 hours 44 min regional [facility] Natarajan CNM Delivery Date: 06/30/21 Last Updated by: Olive Staton Pit augmentation, epidural, apgars 5/7/9 Ramy
[2023-07-05 12:31] LABS: Bilirubin Negative (Negative); Blood Negative (Negative); Clarity Clear (Clear); Glucose Negative (Negative); Ketones 40 mg/dL (Negative); Leukocyte Esterase Trace (Negative); Nitrite Negative (Negative); Specific Gravity >= 1.030 (1.005-1.025); pH 6.5 (5-8)
[2023-07-05 12:36] LABS: Bacteria Many HPF (Negative); C & S Indicated? No/Sq. Contamination; Casts Negative LPF (Negative); Crystals Negative HPF (Negative); Epithelial Cells Many HPF (Negative); Mucus Trace (Negative); RBC 0-2 HPF (0-2)
== END 2023-07-05 13:01 | disposition home or self-care (01) ==
PROVIDERS: Emergency Provider Emergency Medicine
DX: O26.892 Other specified pregnancy related conditions, second trimester (principal); M54.50 Low back pain, unspecified; Z3A.25 25 weeks gestation of pregnancy
CPT/HCPCS: 99283; 81003; 81015; 87086

== ENCOUNTER 2023-07-20 05:00 | Outpatient (CLI) | payer MEDICAID, SELFPAY ==
[2023-07-20 10:18] LABS: HCT 36.8 % (36.0-46.0); HGB 12.8 g/dL (11.2-15.7); MCH 30.7 pg (27.0-33.0); MCHC 34.8 % (32.0-36.0); MCV 88 fL (80-95); MPV 9.4 fL (8.0-11.0); Platelet Count 282 10^3/uL (130-400); RBC 4.17 10^6/uL (3.93-5.22); RDW 13.2 % (11.7-14.6); RDW-SD 42.5 fL; WBC 13.37 10^3/uL (4.4-10.8)
[2023-07-20 10:57] LABS: Glucose,1 Hr (Glucola) 115 mg/dL (80-140)
== END 2023-07-20 05:01 | disposition home or self-care (01) ==
LOC: LBO 05:01
PROVIDERS: Visit Provider Advanced Practice Midwife
DX: Z34.92 Encounter for supervision of normal pregnancy, unspecified, second trimester (principal)
CPT/HCPCS: 36415; 82950; 85027

== ENCOUNTER 2023-08-13 18:46 | Outpatient (CLI) | payer MEDICAID, SELFPAY ==
[2023-08-13 19:29] VITALS: BP 118/67; PULSE 88
[2023-08-13 19:30] VITALS: PULSE 93; O2SAT 99
[2023-08-13 19:32] VITALS: TEMP 36.7
[2023-08-13 19:52] VITALS: BP 118/67; PULSE 93; TEMP 36.7
[2023-08-13 20:07] LABS: ROM Plus Negative
--- NOTE | 2023-08-13 21:45 | W.OBNST ---
Date of service: 08/13/23 Time of Service: 21:46 NST Evaluation Reason for NST Reasons for Nonstress Test: DECREASED MOVEMENT Gestational Age Gestational Age in Weeks and Days: 39 Weeks and 3Days Test and Monitor Explained Test/Monitor Explained: Test Explained Urine Results Urine Protein: Negative Urine Ketones: Negative Urine Glucose: Negative Urine Blood: Negative NST Information Date on Monitor: 08/13/23 Time on Monitor: 19:28 Date off Monitor: 08/13/23 Time off Monitor: 19:50 Total Time on Monitor: 22 NST Interventions: None Contraction Frequency: no no contrax NST Evaluation Patient States Movement: Decreased FHR Baseline: 140 Variability: Moderate 6-25 bpm Accelerations: 10x10 Decelerations: None NST Results: Reactive
--- NOTE | 2023-08-13 21:53 | W.OBNST ---
Date of service: 08/13/23 Time of Service: 21:54 NST Evaluation Reason for NST Reasons for Nonstress Test: DECREASED MOVEMENT Gestational Age Gestational Age in Weeks and Days: 39 Weeks and 3Days Test and Monitor Explained Test/Monitor Explained: Test Explained Vital Signs Blood Pressure: 118/67 Pulse: 93 Temperature: 98.1 F Urine Results Urine Protein: Negative Urine Ketones: Negative Urine Glucose: Negative Urine Blood: Negative NST Information Date on Monitor: 08/13/23 Time on Monitor: 19:28 Date off Monitor: 08/13/23 Time off Monitor: 19:50 Total Time on Monitor: 22 NST Interventions: None Contraction Frequency: no no contrax NST Evaluation Patient States Movement: Decreased FHR Baseline: 140 Variability: Moderate 6-25 bpm Accelerations: 10x10 Decelerations: None NST Results: Reactive Note Ultrasound Done: N/A. NST Note Note: Addie is here with a report of decreased movement today. baby was active during exam and reactive NST. Addie reported watery discharge for a few days. ROM plus taken. Addie reported irritation with swab testing. I recommended yeast medication x 3 days and that was escribed. Call if symptoms persist. Follow up at [facility]. NST Reviewed and Verified by: Archana Valencia
[2023-08-13 21:57] VITALS: BP 118/67; PULSE 93; TEMP 36.7
== END 2023-08-13 20:37 ==
LOC: BCD 18:47 → OBS 19:25
PROVIDERS: Visit Provider Advanced Practice Midwife
DX: O36.8130 Decreased fetal movements, third trimester, not applicable or unspecified (principal); Z3A.39 39 weeks gestation of pregnancy
CPT/HCPCS: 59025; 84112

== ENCOUNTER 2023-08-14 11:09 | Outpatient (CLI) | payer MEDICAID, SELFPAY ==
[2023-08-14 13:19] VITALS: BP 114/62; PULSE 85; TEMP 36.9
[2023-08-14 13:30] VITALS: BP 114/62; PULSE 85
--- NOTE | 2023-08-14 14:04 | W.OBNST ---
Date of service: 08/14/23 Time of Service: 14:08 NST Evaluation Reason for NST Reasons for Nonstress Test: LABOR Gestational Age Gestational Age in Weeks and Days: 35 Weeks and 3Days Test and Monitor Explained Test/Monitor Explained: Test Explained, Monitor Explained and Patient Verbalized Understanding Vital Signs Blood Pressure: 114/62 Pulse: 85 Temperature: 98.4 F NST Information Date on Monitor: 08/14/23 Time on Monitor: 13:11 Date off Monitor: 08/14/23 Time off Monitor: 13:45 Total Time on Monitor: 34 NST Interventions: PO Hydration NST Evaluation Patient States Movement: Present FHR Baseline: 140 Variability: Moderate 6-25 bpm Accelerations: 15x15 Decelerations: None NST Results: Reactive Note Ultrasound Done: N/A. NST Note Note: Addie called and reported that she passed her mucus plug this morning. She denies contractions but has had a mild backache. She denies leaking fluid. Neg pooling. vaginal pathogen screen taken and GBS swab. Await results. Signs of labor reviewed. call with concerns. Visit at [facility] 08/15. NST Reviewed and Verified by: Archana Valencai
[2023-08-14 14:11] VITALS: BP 114/62; PULSE 85; TEMP 36.9
== END 2023-08-14 13:56 | disposition home or self-care (01) ==
LOC: BCD 11:10 → OBS 13:18
PROVIDERS: Visit Provider Advanced Practice Midwife
DX: O47.03 False labor before 37 completed weeks of gestation, third trimester (principal); Z3A.35 35 weeks gestation of pregnancy
CPT/HCPCS: 59025; 87081; 87480; 87510; 87660

== ENCOUNTER 2023-08-16 18:16 | Outpatient (CLI) | payer MEDICAID, SELFPAY ==
[2023-08-16 20:20] VITALS: BP 117/60; PULSE 88; RESP 18
--- NOTE | 2023-08-16 20:37 | W.OBNST ---
Date of service: 08/16/23 Time of Service: 20:37 NST Evaluation Reason for NST Reasons for Nonstress Test: LABOR Gestational Age Gestational Age in Weeks and Days: 35 Weeks and 3Days
[2023-08-16 20:49] VITALS: BP 117/60; PULSE 88
--- NOTE | 2023-08-16 21:10 | W.OBNST ---
Date of service: 08/16/23 Time of Service: 21:10 NST Evaluation Reason for NST Reasons for Nonstress Test: OTHER, SEE COMMENT Reason for NST Other: bloody mucous: pt took photo's: rust and blood streaked ropey mucous plug Gestational Age Gestational Age in Weeks and Days: 31 Weeks and 2Days Test and Monitor Explained Test/Monitor Explained: Test Explained, Monitor Explained and Patient Verbalized Understanding Vital Signs Blood Pressure: 117/60 Pulse: 88 Urine Results Urine Protein: Negative Urine Ketones: Negative Urine Glucose: Negative Urine Blood: Negative NST Information Date on Monitor: 08/16/23 Time on Monitor: 20:20 Date off Monitor: 08/16/23 Time off Monitor: 20:42 Total Time on Monitor: 22 NST Interventions: None Contraction Frequency: 0 NST Evaluation Patient States Movement: Present FHR Baseline: 145 Variability: Moderate 6-25 bpm Accelerations: 15x15 Decelerations: None NST Results: Reactive Note Ultrasound Done: Presentation Presentation Results: transverse with back up, head to the left Coding for Presentation w/NST: Completed Exam. NST Note Note: SSE performed, no visible blood at cvx or in vaginal vault, nml appearing vaginal mucous VPS done yesterday was negative, GBS is pending Cvx exam: external os flaring to 1cm, internal os closed, thick without effacement, no presenting part in pelvis POCUS done for transverse lie, head to left, back up (fundal), No labor, no bleeding, pt d/c'ed to home, f/up as scheduled NST Reviewed and Verified by: Olive Staton
[2023-08-16 21:17] VITALS: BP 117/60; PULSE 88
== END 2023-08-16 18:17 | disposition home or self-care (01) ==
PROVIDERS: Visit Provider Advanced Practice Midwife
DX: O26.893 Other specified pregnancy related conditions, third trimester (principal); O32.2XX0 Maternal care for transverse and oblique lie, not applicable or unspecified; N89.8 Other specified noninflammatory disorders of vagina; Z3A.31 31 weeks gestation of pregnancy
CPT/HCPCS: 59025

== ENCOUNTER 2023-09-11 14:03 | Outpatient (CLI) | payer MEDICAID, SELFPAY ==
[2023-09-11 14:48] VITALS: BP 117/63; PULSE 100
[2023-09-11 14:50] VITALS: BP 117/63; PULSE 100; TEMP 37
--- NOTE | 2023-09-11 15:31 | W.OBNST ---
Date of service: 09/11/23 Time of Service: 15:31 NST Evaluation Reason for NST Reasons for Nonstress Test: LABOR Gestational Age Gestational Age in Weeks and Days: 35 Weeks and 0Days Test and Monitor Explained Test/Monitor Explained: Test Explained, Monitor Explained and Patient Verbalized Understanding Vital Signs Blood Pressure: 117/63 Pulse: 100 Temperature: 98.6 F Urine Results Urine Protein: Negative Urine Ketones: Negative Urine Glucose: Negative Urine Blood: Negative NST Information Date on Monitor: 09/11/23 Time on Monitor: 14:44 Date off Monitor: 09/11/23 Time off Monitor: 15:10 Total Time on Monitor: 26 Contraction Frequency: irregular, not palpable NST Evaluation Patient States Movement: Present FHR Baseline: 135 Variability: Moderate 6-25 bpm Accelerations: 15x15 Decelerations: None NST Results: Reactive Note Ultrasound Done: Presentation Presentation Results: Cephalic Coding for Presentation w/NST: Completed Exam. NST Note Note: NST is reactive and reassuring. Addie is having irregular contractions, unable to palpate them. SSE done, cervix long thick and closed. Had recent vaginal pathogen that was normal. POCUS done for presentation, Cephalic presentation. We discussed that with baby's position change she might be feeling more in lower abdomen now than when baby was breech. She will call if symptoms worsen, otherwise, keep her appointment on Tuesday this week. RON NST Reviewed and Verified by: Archana Natarajan
[2023-09-11 15:33] VITALS: BP 117/63; PULSE 100; TEMP 37
--- NOTE | 2023-09-11 15:46 | W.POCUS ---
[facility] OB Exam DATE OF EXAM:: 09/11/23 TIME OF EXAM:: 15:30 PROVIDER THAT PERFORMED THE STUDY: Archana Natarajan IS THIS A REPEAT EXAM DURING THIS ENCOUNTER: No Type of Exam: Pelvic OB Trans Abdominal (presentation) REASON FOR EXAM: other (cramping) indication: cramping in , recently breech VISUALIZED STRUCTURES: uterus PERTINENT FINDINGS/IMPRESSION: cardiac activity (Cephalic presentation) Exam Complete. DIFFERENTAL DIAGNOSES: recently breech on US, today cephalic presentation on US
[2023-09-12 08:04] VITALS: BP 124/70; PULSE 78
== END 2023-09-11 15:36 | disposition home or self-care (01) ==
LOC: BCD 14:06 → OBS 14:41
PROVIDERS: Visit Provider Advanced Practice Midwife
DX: O47.03 False labor before 37 completed weeks of gestation, third trimester (principal); Z3A.35 35 weeks gestation of pregnancy
CPT/HCPCS: 59025; 76815

== ENCOUNTER 2023-09-20 14:47 | Outpatient (REF) | payer MEDICAID, SELFPAY | END 2023-09-20 14:48 | disposition home or self-care (01) | LOC: LBN 14:47 | PROVIDERS: Visit Provider Advanced Practice Midwife | DX: Z34.93 Encounter for supervision of normal pregnancy, unspecified, third trimester (principal); Z88.0 Allergy status to penicillin; Z36.85 Encounter for antenatal screening for Streptococcus B; Z3A.36 36 weeks gestation of pregnancy | CPT/HCPCS: 87081 ==

== ENCOUNTER 2023-09-30 18:40 | Outpatient (CLI) | payer MEDICAID, SELFPAY ==
[2023-09-30 19:15] VITALS: BP 115/72; PULSE 82
[2023-09-30 22:18] VITALS: BP 115/78; PULSE 82; TEMP 36.6
--- NOTE | 2023-09-30 23:47 | W.OBNST ---
Date of service: 09/30/23 Time of Service: 22:00 NST Evaluation Reason for NST Reasons for Nonstress Test: DECREASED MOVEMENT Gestational Age Gestational Age in Weeks and Days: 37 Weeks and 5Days Test and Monitor Explained Test/Monitor Explained: Test Explained, Monitor Explained and Patient Verbalized Understanding Vital Signs Blood Pressure: 115/78 Pulse: 82 Temperature: 97.9 F Urine Results Urine Protein: Negative Urine Ketones: Negative Urine Glucose: Negative Urine Blood: Negative NST Information Date on Monitor: 09/30/23 Time on Monitor: 20:48 Date off Monitor: 09/30/23 Time off Monitor: 22:03 Total Time on Monitor: 75 NST Interventions: PO Hydration and Notify Provider Contraction Frequency: 0 NST Evaluation Patient States Movement: Present FHR Baseline: 135 Variability: Moderate 6-25 bpm Accelerations: 15x15 Decelerations: None NST Results: Reactive Note Ultrasound Done: N/A. NST Note Note: NST became reactive after PO hydration NST Reviewed and Verified by: Olive Staton
[2023-09-30 23:48] VITALS: BP 115/78; PULSE 82; TEMP 36.6
== END 2023-09-30 22:06 ==
LOC: BCD 18:42 → OBS 19:11
PROVIDERS: PCP Advanced Practice Midwife; Visit Provider Advanced Practice Midwife
DX: O36.8130 Decreased fetal movements, third trimester, not applicable or unspecified (principal); Z3A.37 37 weeks gestation of pregnancy
CPT/HCPCS: 59025

== ENCOUNTER 2023-10-05 11:31 | Outpatient (CLI) | payer MEDICAID, SELFPAY ==
[2023-10-05 11:37] VITALS: BP 117/70; PULSE 85; TEMP 36.8
[2023-10-05 11:40] VITALS: BP 117/70; PULSE 85
--- NOTE | 2023-10-05 14:28 | W.OBNST ---
Date of service: 10/05/23 Time of Service: 14:28 NST Evaluation Reason for NST Reasons for Nonstress Test: DECREASED MOVEMENT Gestational Age Gestational Age in Weeks and Days: 38 Weeks and 3Days Test and Monitor Explained Test/Monitor Explained: Test Explained and Monitor Explained Vital Signs Blood Pressure: 117/70 Pulse: 85 Temperature: 98.2 F Urine Results Urine Protein: Positive Urine Ketones: Negative Urine Glucose: Negative Urine Blood: Positive NST Information Date on Monitor: 10/05/23 Time on Monitor: 11:30 Date off Monitor: 10/05/23 Time off Monitor: 11:55 Total Time on Monitor: 25 NST Interventions: PO Hydration NST Evaluation Patient States Movement: Decreased FHR Baseline: 135 Variability: Moderate 6-25 bpm Accelerations: 15x15 Decelerations: None NST Results: Reactive Note Ultrasound Done: N/A. NST Note Note: Pt appreciated FM x2 during NST Discussed scheduling NST's q3-4 days to address chronic DFM, pt declines states she is checking FHT with her home doptone Pt is reassured today, will call if becomes concerned again NST Reviewed and Verified by: Olive Staton
[2023-10-05 14:30] VITALS: BP 117/70; PULSE 85; TEMP 36.8
== END 2023-10-05 12:00 | disposition home or self-care (01) ==
LOC: BCD 11:33 → OBS 11:36
PROVIDERS: PCP Advanced Practice Midwife; Visit Provider Advanced Practice Midwife
DX: O36.8130 Decreased fetal movements, third trimester, not applicable or unspecified (principal); Z3A.38 38 weeks gestation of pregnancy
CPT/HCPCS: 59025; 87086

== ENCOUNTER 2023-10-16 09:30 | Outpatient (CLI) | payer MEDICAID, SELFPAY ==
[2023-10-16 11:34] VITALS: BP 119/66; PULSE 96; TEMP 36.8
[2023-10-16 11:40] VITALS: BP 119/66; PULSE 96
--- NOTE | 2023-10-16 12:08 | W.OBNST ---
Date of service: 10/16/23 Time of Service: 12:08 NST Evaluation Reason for NST Reasons for Nonstress Test: OTHER, SEE COMMENT Reason for NST Other: Back pain Gestational Age Gestational Age in Weeks and Days: 40 Weeks and 0Days Test and Monitor Explained Test/Monitor Explained: Test Explained and Monitor Explained Vital Signs Blood Pressure: 119/66 Pulse: 96 Temperature: 98.2 F Urine Results Urine Protein: Negative Urine Ketones: Negative Urine Glucose: Negative Urine Blood: Negative NST Information Date on Monitor: 10/16/23 Time on Monitor: 11:31 Date off Monitor: 10/16/23 Time off Monitor: 12:01 Total Time on Monitor: 30 NST Interventions: PO Hydration Contraction Frequency: irregular, mild, irritable NST Evaluation Patient States Movement: Present FHR Baseline: 135 Variability: Moderate 6-25 bpm Accelerations: 15x15 Decelerations: None NST Results: Reactive Note Ultrasound Done: N/A. NST Note Note: Cvx 1.5/90% posterior, soft, vtx -3, intact membranes UA is neg, NST is reactive, CVAT is neg, denies nausea or vomiting Pt having moderately severe low back pain x2 days, nothing helps much to relieve it Reports unable to rest or sleep, feeling exhausted Has taken tylenol, used warm compresses, massage, pressure, soaking in tub POC options offered: obs for cvx change, therapeutic rest (morphine) overnight, consider IOL this week Pt discussing with her stepmother, resting in bed. NST Reviewed and Verified by: Olive Staton
[2023-10-16 12:10] VITALS: BP 119/66; PULSE 96; TEMP 36.8
== END 2023-10-16 11:45 | disposition home or self-care (01) ==
LOC: BCD 09:32 → OBS 11:32
PROVIDERS: PCP Advanced Practice Midwife; Visit Provider Advanced Practice Midwife
DX: O47.1 False labor at or after 37 completed weeks of gestation (principal); O26.893 Other specified pregnancy related conditions, third trimester; Z3A.40 40 weeks gestation of pregnancy; M54.9 Dorsalgia, unspecified
CPT/HCPCS: 59025

== ENCOUNTER 2023-10-17 23:08 | Inpatient (IN) | payer MEDICAID, SELFPAY ==
--- NOTE | 2023-10-17 23:16 | W.PM.OBHPL1 ---
Date of service: 10/17/23 Time of Service: 23:16 Assessment and Plan Assessment and plan (1) Normal labor: Status: Acute Assessment and plan: A: 18 yo @ 40+1 wks Spontaneous labor, GBS neg Category 1 tracing; low risk for SD and PPH P: Admit to L&D, CBC and T&S, add Varicella Ab as this was not done during Pt desires epidural, will initiate IV access Anticipate OB-HPI Labor/Delivery History of Present Illness Reason for Visit: labor, 40 wks Chief Complaint: Uterine Contractions (painful frequent contractions with back pain since 2099, no bleeding, no ROM, ). JENNIFER Calculator Estimated Delivery Date Method Current WG Current Estimate 10/16/23 Ultrasound #2 40w 2d Other Estimates 10/16/23 Ultrasound #1 40w 2d History of Present Expected Delivery Route/Plan - CNM FOB/boyfriend - Jagjit Raza (his first child)- No longer together BG Plans for epidural GBS negative @ 31 & 36 wks Addie's mother for labor support. Specific Issues/Plan 1. Transfer from [facility] @ 16 wks 2. Chronic kidney stones- Stones removed 10/07. ED visit for recurrence 04/24 - [facility] urology appt July 3. Had the flu @ 14 wks, Had covid 06/11 4. Depression/anxiety, takes sertraline 25 mg 5. Right eye infected with pink eye (son also), eye drops Rx'ed 6. BMI 38 - GTT 115 Assessment: History Reviewed & Current Informed Consent Informed Consent: Regional Anesthesia and Risk,Benefits,Alternatives Discussed Review of Systems Narrative: ROS completed and noncontributory PFSH All Active Problems (Updated 10/17/23 @ 23:51 by Olive Staton) Normal labor (Acute) Penicillin allergy (Acute) BMI 38.0-38.9,adult (Acute) (Acute) Depression (Chronic) hx of meds Anxiety (Chronic) Insomnia (Acute) Medical History (Updated 10/17/23 @ 23:51 by Olive Staton) Contraceptive management Xulane patch 11/01/2022 History of kidney stones Hematuria Obstruction of left ureteropelvic junction (UPJ) due to stone Kidney disorder Pt. 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 checked by pediatric radiologist at [facility] [place] who felt thymus was normal in size. no further intervention necessary Influenza B Migraine with aura Asthma Surgical History History of appendectomy Tonsillectomy and adenoidectomy Family History Mother Asthma as child Depression Father Migraines Mental disorder depression/anxiety Alcohol abuse Depression Other Migraines PGM Diabetes MGM Alcohol abuse paternal side Essential hypertension PGF, PGGF Personal history of malignant neoplasm MGGM-brain, MGU-ear, Mcousin-nose/brain Mental disorder MGM Stroke PGGF Asthma MGM Dementia Maternal Cousin Vesicoureteral reflux with resulting kidney disease, unilateral Social History Smoking/Tobacco Use Status: Never Smoking risk assessment performed?: Yes Alcohol Intake: never Drug use: Never Substance use type: does not use Education Level: high school Details: 07/19/18- Freshman at [employer] Pets and animals: Yes Pets and animals: dog(s) and fish Current gender identity: female Do you feel safe at home: Yes Do you feel safe in your relationship?: Yes History History 2 Para 1 Hx # Term Pregnancies 1 Multiple births 0 Hx # Pregnancies 0 Ectopic pregnancies 0 AB induced 0 Hx Number of Living Children 1 AB spontaneous 0 Past Pregnancies Del. Date GA/Weeks # Preg Succ Route Wgt Sex Labor Lgth Anesthesia Location Prov Complic 06/30/21 39 No Yes vaginal 7 lb 10 oz Male 22 hours 44 min regional [place] Natarajan CNM Delivery Date: 06/30/21 Last Updated by: Olive Staton Pit augmentation, epidural, apgars 5/7/9 Ramy Meds Allergies and Home Medications Allergies Allergy/AdvReac Type Severity Reaction Status Date / Time Penicillins Allergy Intermediate Hives Verified 10/12/23 10:37 amoxicillin Allergy Mild Face Verified 10/12/23 10:37 turned bright red, sunburn-like rash on face and leg erythromycin base Allergy rash Verified 10/12/23 10:37 Home Medications Medication Instructions Recorded Confirmed Type inhalational spacing device (Space ##2 06/03/16 10/12/23 History Chamber Plus) acetaminophen 500 mg tablet 500 mg PO Q4H PRN 02/23/19 10/12/23 History (Tylenol Extra Strength) albuterol sulfate 90 mcg/actuation 2 puff inhalation Q4H PRN ##2 05/14/21 10/12/23 History aerosol inhaler (ProAir HFA) albuterol sulfate 90 mcg/actuation 2 inh inhalation Q6H PRN shortness 05/14/21 10/12/23 Rx breath activated powder inhaler of breath or wheezing #1 ea sertraline 50 mg tablet 50 mg PO DAILY #30 tabs 10/05/23 10/12/23 Rx hydralazine 100 mg tablet 100 mg PO HS 3 days #3 tabs 10/17/23 Rx Exam Physical Exam Vital signs: 115/76, P-95 Vital Signs Reviewed: Yes Constitutional Constitutional: moderate distress and average body habitus Detailed Labor and Delivery Exam Dilation: 5.5 Effacement (%): 90 station: -3 Cervix position: mid Consistency: soft Amniotic Membrane Status: Intact Monitor Mode: External Contraction Frequency(min): q3 Contraction Duration(sec): 60 Fetus A Heart Rate Baseline: 120 Monitor Accelerations: 15 X 15 Monitor Decelerations: None Variability: Moderate (6-25 BPM) Categories: Category I Est. Weight: 7 lb 14.986 oz Est. Weight: 3600 gms HEENT Exam HEENT Exam: Normal Neck Exam Neck Exam: Normal Chest/Brest/Axilla Exam Chest Exam: Normal Breast Exam Breast Exam: Not Done Respiratory Exam Respiratory Exam: Normal Cardiovascular Exam Cardiovascular Exam: Normal Abdominal Exam Abdominal Exam: Normal (gravid, nontender) Rectal Exam Rectal Exam: Not Done Exam Exam: Normal Extremities Exam Extremities Exam: Normal Back/Spine/Pelvis Exam Back Exam: Normal Pelvis Adequate: Yes (proven to 7'10) Skin Exam Skin Exam: Normal Neurological Exam Neurological Exam: Normal Psychiatric Exam Psychiatric Exam: Normal Results Results Group Beta Strep: Negative Blood Type: A+ Rubella Status: Immune Varicella Immunity: Not Tested Risk Assessment Risk for Shoulder Dystocia Historical/Initial OB: POSITIVE FOR: Pre- BMI>30; NEGATIVE FOR: Pelvic Abnormality, Previous Shoulder Dystocia or Previous Macrosomia 36 Weeks: NEGATIVE FOR: Current Gestational DM, EFW>4500gms or Maternal Weight Gain>40lbs 40 Weeks: NEGATIVE FOR: EFW> 4500 gms, Maternal Weight Gain >40lb or Post Dates Increased Risk?: No Delivery Plan @ 36wks: NVD KH Delivery Plan @ 40 wks: pt requesting elective IOL, scheduled for 10/19 Risk for Pre-Eclampsia Date Initiated/Initials: not indicated. JK Yes, if one or more: NEGATIVE FOR: Hx Pre-E/Gest HTN, Chronic HTN, Multiple Gestation, Pre-gestational DM, Renal Disease, Systemic Lupus or APA Syndrome Yes, if 2 or more: POSITIVE FOR: BMI>30; NEGATIVE FOR: Nulliparity, Age>= 35 yrs, >10yr btwn pregnancies, ethinicty, Mother/Sister w/ Pre-E or Previous IUGR Risk for Post- Hemorrhage Initial: NEGATIVE FOR: Multiple Gestation, Previous PPH, Known Clotting Deficiency, Grand Multiparity or Anticoagulation 36 Weeks: NEGATIVE FOR: Anemia, hgb<10, Low platelets(thrombocytopenia), Gestational HTN or Pre-E, Polyhydraminios or EFW>4500gms 40 Weeks: NEGATIVE FOR: Anemia, hgb<10, Low platelets (thrombocytopenia), Gestation HTN or Pre-E, Polyhydraminios or EFW>4500gms At Risk?: No Counseled re: Active Management: Yes Date/Initials: 09/20/23 RON Risks Reviewed Risks Reviewed Upon Admission: Yes
[2023-10-17 23:19] VITALS: BP 115/76; PULSE 95
[2023-10-18] VITALS (129 sets, daily range): BP systolic 100–156; BP diastolic 57–89; PULSE 0–142; RESP 16–18; TEMP 36.6–36.8; O2SAT 88–100; BMI 38.4
[2023-10-18 00:09] LABS: HCT 38.5 % (36.0-46.0); HGB 12.8 g/dL (11.2-15.7); MCH 29.4 pg (27.0-33.0); MCHC 33.2 % (32.0-36.0); MCV 88 fL (80-95); MPV 9.9 fL (8.0-11.0); Platelet Count 337 10^3/uL (130-400); RBC 4.36 10^6/uL (3.93-5.22); RDW 13.5 % (11.7-14.6); RDW-SD 43.8 fL; WBC 15.62 10^3/uL (4.4-10.8)
--- NOTE | 2023-10-18 00:31 | ANES.PREOP_ITS ---
General Info Date of Service Date Performed: 10/18/23 Height: 5 ft 4 in Weight: 101.6 kg Body Mass Index (BMI): 38.4 Meds Allergies and Home Medications Allergies Allergy/AdvReac Type Severity Reaction Status Date / Time Penicillins Allergy Intermediate Hives Verified 10/12/23 10:37 amoxicillin Allergy Mild Face Verified 10/12/23 10:37 turned bright red, sunburn-like rash on face and leg erythromycin base Allergy rash Verified 10/12/23 10:37 Home Medication Medication Instructions Recorded inhalational spacing device (Space ##2 06/03/16 Chamber Plus) acetaminophen 500 mg tablet 500 mg PO Q4H PRN 02/23/19 (Tylenol Extra Strength) albuterol sulfate 90 mcg/actuation 2 puff inhalation Q4H PRN ##2 05/14/21 aerosol inhaler (ProAir HFA) albuterol sulfate 90 mcg/actuation 2 inh inhalation Q6H PRN shortness 05/14/21 breath activated powder inhaler of breath or wheezing #1 ea sertraline 50 mg tablet 50 mg PO DAILY #30 tabs 10/05/23 hydralazine 100 mg tablet 100 mg PO HS 3 days #3 tabs 10/17/23 Current Visit Medications: Current Medications Generic Name Dose Route Start Last Admin Trade Name Freq PRN Reason Stop Dose Admin Fentanyl/Ropivacaine 200 ml 10/18/23 00:15 Fentanyl/Ropivacaine 2 Mcg/Ml And 0.1% 200 Ml Cadd Cassette EP DIRECTED [facility] Ringer's Solution 1,000 mls @ 125 mls/hr 10/17/23 23:45 IV INFUSION [facility] IV Miscellaneous Supplies 1 each 10/17/23 23:15 Iv Access IV DIRECTED [facility] Sertraline HCl 50 mg 10/18/23 08:30 Sertraline 50 Mg Tab PO DAILY DANIELLE Sodium Chloride 0 ml 10/17/23 23:07 Normal Saline Flush 10 Ml Syr IVP PRN PRN Sodium Chloride 0 ml 10/18/23 08:30 Normal Saline Flush 10 Ml Syr IVP BID DANIELLE Sodium Chloride 0 ml 10/17/23 23:07 Normal Saline 10 Ml Vial IJ DIRECTED PRN PFSH Active Problems Active Problems: Problem Status Onset Code Normal labor O80, Z37.9 Penicillin allergy Z88.0 BMI 38.0-38.9,adult Z68.38 Z34.90 Depression F32.9 Anxiety F41.9 Insomnia G47.00 Medical History Medical History (Updated 10/17/23 @ 23:51 by Olive Staton) Contraceptive management Xulane patch 11/01/2022 History of kidney stones Hematuria Obstruction of left ureteropelvic junction (UPJ) due to stone Kidney disorder Pt. 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 [place] [facility] [place]us was normal in size. no further intervention necessary Influenza B Migraine with aura Asthma Medical History Comments:: Surgical History Surgical History History of appendectomy Tonsillectomy and adenoidectomy Tobacco Smoking/Tobacco Use Status: Never Passive smoking exposure: Yes Alcohol Alcohol Intake: never Substance Use Substance use: Never Substance use type: does not use Prental History History 2 2 Para 1 Hx # Term Pregnancies 1 Multiple births 0 Hx # Pregnancies 0 Ectopic pregnancies 0 AB induced 0 Hx Number of Living Children 1 AB spontaneous 0 Past Pregnancies Del. Date GA/Weeks # Preg Succ Route Wgt Sex Labor Lgth Anesth esia Location Prov Complic 06/30/21 39 No Yes vaginal 3458.642 g Male 22 hours 44 min region liliana Natarajan CNM Delivery Date: 06/30/21 Last Updated by: Olive Staton Pit augmentation, epidural, apgars Ramy Vital Signs and Lab Results Vital Signs Most Recent Vital Signs in EMR: Most Recent Vital Signs Temp Pulse BP 36.8 C 98 H 134/77 10/18/23 00:24 10/18/23 00:24 10/18/23 00:24 Lab Results 10/17/23 23:45 Blood Type / Crossmatch: 2 Antibody Screen NEGATIVE 10/17/23 Complete Blood Count: 2 White Blood Count 15.62 10^3/uL (4.4-10.8) H 10/17/23 23:45 Red Blood Count 4.36 10^6/uL (3.93-5.22) 10/17/23 23:45 Hemoglobin 12.8 g/dL (11.2-15.7) 10/17/23 23:45 Hematocrit 38.5 % (36.0-46.0) 10/17/23 23:45 Platelet Count 337 10^3/uL (130-400) 10/17/23 23:45 Complete Metabolic Panel: 2 No Data to Display Liver Function Panel: 2 No Data to Display Coagulation Panel: 2 No Data to Display Cardiac Panel: 2 No Data to Display Arterial Blood Gas: 2 No Data to Display Venous Blood Gas: 2 No Data to Display Pancreas Panel: 2 No Data to Display Thyroid Panel: 2 No Data to Display Infectious Disease: 2 No Data to Display Blood Cultures: 2 No Data to Display Toxicology Panel: 2 No Data to Display Panel: 2 No Data to Display Imaging and Studies Imaging and Studies Study information below may be from another EMR and interpreted by another provider. Please see original notes in EMR for more complete details. EKG Summary: 03/2021: sinus. Anesthesia Assessment and Plan Anesthesia History Personal History: No History of Anesthesia Complications Family History: No Family History of Anesthesia Complications Exercise Tolerance Exercise Tolerance: Metabolic Equivalents>4 Pertinent Negatives Pertinent Negatives: No Symptoms of GERD Cardiac & Pulmonary Exam Cardiac Exam: Normal S1/S2 Heart Sounds Pulmonary Exam: Clear Bilateral Breath Sounds Implantable Cardiac Device Does patient have a Pacemaker or an ICD?: No Airway Exam Known Difficult Airway: No Mallampati Class: 2 Mouth Opening: Normal (> 3cm) Thyromental Distance: Greater than 3 cm Neck Range of Motion: Full ROM Neck Circumference: Thick Teeth Condition: Normal Dentition ASA Classification ASA Score: ASA 2 Emergency Case?: No NPO Status NPO Status: NPO Clears >2 hours, Solids >8 hours Status Status: Confirmed Anesthesia Plan Resuscitation Status: Full Code Anesthesia Technique: Epidural Anesthesia Airway Planned: Natural Airway Pain Management: Surgeon and patient request nerve block Monitors Used: Standard Monitors
--- NOTE | 2023-10-18 01:39 | W.ANESNEU ---
Epidural/Spinal Catheter Date Performed: 10/18/23 Procedure Start: 00:55 Procedure Stop: 01:30 Requesting Provider: Olive Staton Procedure Location: Obstetrics Reason Performed: Labor Epidural Standard Monitors Applied: Blood Pressure, SpO2 and See EMR for corresponding vital signs Patient Position: Sitting Sedation Given (Indicate Dose Given): No Sedation given Patient Mental Status: Awake Sterility: Hand Hygiene, Surgical Cap, Surgical Mask, Sterile Gloves and Chlorhexidine Procedure Location: L4-L5 Interspace Epidural Needle: Tuohy 18 Gauge Needle Length: 3.5 Inch Needle Approach: Midline Epidural Procedure: Skin Prepped, Sterile Drape Placed, 1% Lidocaine to skin and subcutaneous tissue with 25G needle, Tuohy Needle placed, PHILL to Saline Used, Epidural Catheter Placed, Negative Heme, Negative CSF Flow and Tuohy Needle Removed Catheter Placed?: Catheter Placed Test Dose (Indicate Dose Given): 5ml 1.5% Lidocaine with 1:200K Epinephrine Given and Negative Test Dose Loss of Resistance Depth (cm): 10 Catheter depth at skin (cm): 15 Dressing: Sorbaview Dressing Placed, Mastisol Used and Dressing reinforced with Tape Epidural Provider Bolus (Indicate Dose Given): Total bolus dose given in 3-5 ml divided doses and Total Ropivacaine 0.1% with Fentanyl 2mcg/ml Given from pump. (ml) Dose:: 10 ml Additives (Indicate Dose Given ): None Infusion Medication: Medication Infusion Began Medication Infusion: Ropivacaine 0.1% with Fentanyl 2mcg/ml Maintenance Infusion Rate (ml/hour): 10 PCEA Bolus Dose (ml): 5 Post Procedure Pain score (0-10): 0 Block Level: N/A Paresthesia: None Ultrasound: Not Used Number of Attempts (See previous attempts in note section): 3 Procedure Tolerated: No Complications and Patient tolerated well Procedure Outcome: Successful Procedure Comment:: Patient very anxious throughout procedure with multiple breaks taken but did well. Negative test dose at 0120. Gave bolus and patient doing well at this time. Performed By: Rah Benz
--- NOTE | 2023-10-18 02:10 | W.PM.OBNL1 ---
Date of service: 10/18/23 Time of Service: 02:11 Informed Consent Informed Consent: Regional Anesthesia and Risk,Benefits,Alternatives Discussed Pelvic Exam Dilation: 7 Effacement (%): 100 station: -2 Position: ROP Cervix Position: mid Consistency: soft Contractions Monitor Mode: External Contraction Frequency(min): q3-4 Intensity: Moderate/Strong Fetus A Monitor: External (US) Heart Rate Baseline: 140 Variability: Moderate (6-25 BPM) Categories: Category I Accelerations: 15 X 15 Decelerations: None Amniotic Membrane Status: Ruptured Rupture Method: Artifical Amniotic Fluid: Clear Amount: moderate Date of Membrane Rupture: 10/18/23 Time of Membrane Rupture: 02:03 Assessment and Plan Assessment and plan (1) Normal labor: Status: Acute Assessment and plan: A: epidural in place and effective, category 1 tracing AROM at pt request, cvx 7 cm, ROP -2, clear fluid P: Maternal position changes to facilitate rotation/descent Anticipate Objective Abnormal lab results 10/17/23 Range/Units 23:45 WBC 15.62 H (4.4-10.8) 10^3/uL Temp Pulse Resp BP Pulse Ox 98.3 F 125 H 18 131/76 99 10/18/23 00:24 10/18/23 02:06 10/18/23 01:59 10/18/23 02:06 10/18/23 01:45 Laboratory Results WBC 15.62 10^3/uL (4.4-10.8) H 10/17/23 23:45 RBC 4.36 10^6/uL (3.93-5.22) 10/17/23 23:45 Hgb 12.8 g/dL (11.2-15.7) 10/17/23 23:45 Hct 38.5 % (36.0-46.0) 10/17/23 23:45 MCV 88 fL (80-95) 10/17/23 23:45 MCH 29.4 pg (27.0-33.0) 10/17/23 23:45 MCHC 33.2 % (32.0-36.0) 10/17/23 23:45 RDW 13.5 % (11.7-14.6) 10/17/23 23:45 Plt Count 337 10^3/uL (130-400) 10/17/23 23:45 MPV 9.9 fL (8.0-11.0) 10/17/23 23:45 ABO/Rh A Positive 10/17/23 23:45 Antibody Screen NEGATIVE 10/17/23 23:45 Vital Signs Reviewed: Yes Subjective Interval history since last seen: Epidural in place with successful relief except for LLQ area that hurts with contractions. Pt requests AROM.
[2023-10-18] MEDS: FentaNYL/ROPIvacaine 2 mcg/ml and 0.1% 200 ML CADD Cassette EP (02:20)
[2023-10-18] MEDS: Lactated Ringers 1,000 ML 125 ML IV (02:20)
--- NOTE | 2023-10-18 02:42 | W.PM.OBNL1 ---
Date of service: 10/18/23 Time of Service: 02:42 Informed Consent Informed Consent: Augmentation of Labor and Risk,Benefits,Alternatives Discussed Contractions Contraction Frequency(min): q 4-7 min Fetus A Heart Rate Baseline: 150 Variability: Moderate (6-25 BPM) Categories: Category I Accelerations: Present Decelerations: None Amniotic Membrane Status: Ruptured Assessment and Plan Assessment and plan (1) Normal labor: Status: Acute Assessment and plan: A: contractions have slowed since epidural tracing remains category 1 P: Pitocin augmentation, pt consents Anticipate Objective Vital Signs Reviewed: Yes Subjective Interval history since last seen: pt comfortable using CUB on bed for H&K position, contractions are irregular 4-7 min apart
[2023-10-18] MEDS: Oxytocin/Normal Saline 30 UNIT/500 ML BAG 2 UNITS IV (02:52)
--- NOTE | 2023-10-18 04:45 | W.OBDELIVERY ---
Date of service: 10/18/23 Time of Service: 04:45 OB Labor/ Delivery Information Baby A Delivery Delivery Method: Spontaneaous Presentation: Cephalic Cephalic Position: Vertex Vertex Position: Right Occipital Anterior Cord Description-Baby A: 3 Vessels, Nuchal Cord (loose, reduced overhead) and Reduced Amniotic Fluid: Meconium Estimated Blood Loss: 200 ml Delivery Outcome: Liveborn Infant Transferred: Remains with Mother Note: Pt rested and tried several postions with good leg control under epidural, pitocin augmentation at 4 mu/min, while left lateral with pnut ball between knees she reported rectal pressure, VE for complete dilation and +2 station, 2nd stage huddle completed, pt chose to reposition to semifowlers. FHT per [place] had been category 1 but with pushing FHT dropped to 90's and then signal from NOVI was lost for final 3 minutes of . Strong pushing efforts accomplished of a female infant over intact perineum, loose nuchal cord reduced overhead and shoulders delivered easily, bulb sx on field and the to mother's arms for drying and stimulation, terminal meconium noted, pitocin bolus begun, cord ceased pulsating and was clamped then cut by FOB. 1 minute @ 6, infant dusky with low tone so moved to warmer for blowby and suctioning. Cord blood collected, kelly placenta delivered intact with 3VC, fundus firm below umbilicus, minimal rubra, vulva and vagina inspected and found to be intact. received room air CPAP in warmer for 1 minute, became pink at 95% 02sat and then returned to mother for S2S by 9 minutes of age, storng family bonding observed. Apgars 6/7/9, weight 3420 gms. Providers Nurse [employer] Professor: Olive Staton Out Of School Hours Care Worker: Rah Benz Nurse: Lindsey March Nurse: Nory Conway Labor/Delivery Information Number of Babies in Womb: 1 Steroids Given: None Reason Steroids Not Administered: N/A Group Beta Strep: Negative Antibiotics Administered: No Rubella Status: Immune Blood Type: A+ Varicella Immunity: Not Tested Medication in Delivery: Fent/rop Shoulder Dystocia: No Stages of Labor Onset of Labor Date: 10/17/23 Onset of Labor Time: 21:00 Complete Dilatation Date: 10/18/23 Complete Dilatation Time: 04:00 Labor - Stage 1 Duration: 7 hours and 0 minutes ROM Baby A: 10/18/23 ROM Baby A: 02:03 ROM Total Time- Baby A: [id number] Infant Delivery Date-Baby A: 10/18/23 Delivery Time-Baby A: 04:24 Labor Stage 2 Duration: 24 minutes Placenta Delivery Date-Baby A: 10/18/23 Placenta Delivery Time-Baby A: 04:30 Labor-Stage 3 Duration: 6 minutes Total Length of Labor-Baby A: 7 hours and 24 minutes Placenta Cultured: No Placenta Status: Delivered Baby A Infant Gender: Female Gestational Status: Term (39-41.6 wks) Gestational Age in Weeks/Days: 40 Weeks and 2 Days weight: 7 lb 8.637 oz Weight Comment: 3420 gms Score-1 Minute Interval(Baby A) Heart Rate-1 minute: Below 100 BPM Respiratory Effort- 1 minute: Slow Respiration/Weak Cry Muscle Tone-1 minute: Active Movement Reflex Response-1 minute: Prompt Response Color-1 minute: Pallor or Cyanosis Score-5 Minute Interval(Baby A) Heart Rate- 5 minute: 100 BPM or Greater Respiratory Effort-5 minute: Slow Respiration/Weak Cry Muscle Tone-5 minute: Active Movement Reflex Response-5 minute: Prompt Response Color-5 minute: Pallor or Cyanosis
--- NOTE | 2023-10-18 18:07 | W.ANESPOSTOP ---
Postoperative Evaluation Date, Time and Location Date Performed: 10/18/23 Time Performed: 18:07 Patient Location: Obstetrics Vital Signs Most Recent Imported Vital Signs: Most Recent Vital Signs Temp Pulse Resp BP Pulse Ox 36.7 C 99 H 16 119/62 98 10/18/23 06:27 10/18/23 07:50 10/18/23 09:00 10/18/23 07:49 10/18/23 07:49 Pain Score Most Recent Pain Score: Most Recent Pain Score Pain Level 0 10/18/23 08:00 Assessment Mental Status: Awake (Alert & Oriented to Patient Baseline) Airway and Respiratory Function: Patent airway with normal (patient baseline) respiratory exam Cardiovascular Function: Hemodynamically Stable Hydration Status: Adequately Hydrated Nausea & Vomiting: No Nausea or Vomiting Pain: Pt. Denies Any Pain Peripheral Nerve Block: Patient did not receive a nerve block
[2023-10-18] MEDS: Acetaminophen 325 MG TAB 650 MG PO (22:55)
[2023-10-19] MEDS: Ibuprofen 600 MG TAB PO (05:28)
[2023-10-19] MEDS: Acetaminophen 325 MG TAB 650 MG PO (05:28)
[2023-10-19 08:15] VITALS: BP 111/74; PULSE 77; RESP 12; TEMP 36.6
[2023-10-19] MEDS: Sertraline 50 MG TAB PO (10:50)
--- NOTE | 2023-10-19 11:06 | W.PM.OBPNV1 ---
Date of service: 10/19/23 Time of Service: 11:06 Assessment and Plan Assessment and plan (1) Term of female : Status: Acute Assessment and plan: Caring for baby independently. Pain is managed well with oral analgesics. Voiding without difficulty. well. A - stable mother and baby , Post day 1 P - Discharge to home tomorrow. Routine post instructions. [facility] Subjective Subjective Interval history: Addie feels well and is pleased about experience. Patient comments: No complaints baby status: Doing well Exam Physical Exam Vital signs: Temp Pulse Resp BP Pulse Ox 97.9 F 77 12 111/74 98 10/19/23 08:15 10/19/23 08:15 10/19/23 08:15 10/19/23 08:15 10/18/23 07:49 Results Hemoglobin/Hematocrit: Hgb 12.8 g/dL (11.2-15.7) 10/17/23 23:45 Hct 38.5 % (36.0-46.0) 10/17/23 23:45 Abnormal Lab Findings: Abnormal Labs 10/17/23 23:45 WBC 15.62 H
[2023-10-19 14:03] LABS: Varicella IgG Antibody Equivocal (See Note)
[2023-10-19 15:05] VITALS: BP 119/69; PULSE 98; RESP 14; TEMP 36.7; O2SAT 98
[2023-10-19 23:52] VITALS: BP 123/75; PULSE 98; RESP 18; TEMP 36.6
[2023-10-20] MEDS: Acetaminophen 325 MG TAB 650 MG PO (00:22)
[2023-10-20] MEDS: Ibuprofen 600 MG TAB PO (00:24)
[2023-10-20] MEDS: Sertraline 50 MG TAB PO (08:10)
[2023-10-20] MEDS: Docusate Sodium 100 MG CAP PO (08:10)
[2023-10-20 08:15] VITALS: BP 115/75; PULSE 98; RESP 16; TEMP 36.6; O2SAT 98
--- NOTE | 2023-10-20 10:54 | OBPPV_ITS ---
Date of service: 10/20/23 Time of Service: 10:55 Assessment and Plan Assessment and plan (1) Term of female : Status: Acute Assessment and plan: A: PPD#2, nml recovery; well, satisfied with experience Pt requests increase in sertraline dose to assist with increased anxiety P: Discharge to home today Sertraline increased to 100 mg PO qd Plan for Nexplanon insertion @ 6 wks Written instructions reviewed and given to pt Pt lives alone w/toddler, has support from FOB & family F/up at 2 & 6 wks Subjective Subjective Patient comments: No complaints, Pain well controlled, Tolerating diet and Bowel Movement Patient's Mood: happy [place] baby status: Doing well, Nursing well, Rooming in and Strong Bonding Observed feeding status: Exclusively breast feeding Exam Physical Exam Vital signs: Temp Pulse Resp BP Pulse Ox 97.9 F 98 H 16 115/75 98 10/20/23 08:15 10/20/23 08:15 10/20/23 08:15 10/20/23 08:15 10/20/23 08:15 Vital Signs Reviewed: Yes Constitutional Constitutional: no acute distress, obese and cooperative HEENT Exam HEENT Exam: Normal Neck Exam Neck Exam: Normal Breast Exam Bilateral: Breast Exam: Normal and Soft Nipple Exam: Normal and Uninjured Respiratory Exam Respiratory Exam: Normal Cardiovascular Exam Cardiovascular Exam: Normal Abdominal Exam Abdomen: Other (soft, nontender) Fundal Exam Fundus: Below Umbilicus and Firm Rectal Exam Rectal Exam: Normal Exam Perineum: Intact and Normal Extremities Exam Extremity Exam: Normal Back/Spine/Pelvis Exam Back Exam: Normal Skin Exam Skin Exam: Normal Neurological Exam Neurological Exam: Normal Psychiatric Exam Psychiatric Exam: Normal
--- NOTE | 2023-10-20 11:00 | W.PM.OBDISCH ---
Date of service: 10/20/23 Time of Service: 11:00 DS: Diagnosis Discharge Diagnosis (1) Term of female : Status: Acute Discharge Plan Disposition Patient Disposition: Home Condition: Good Discharge Details Reason For Visit: labor, 40 wks Admit Date/Time: 10/17/23 23:08 Admit Provider: Olive Staton Attending Provider: Olive Staton Primary Care Provider: Archana Valencia Hospital Course Hospital Course: , nml course Home Meds and New Rx's Prescriptions: No Action acetaminophen [Tylenol Extra Strength] 500 mg tablet 500 mg PO Q4H PRN (DME) Space Chamber Plus 1 EACH spacer 1 ea Miscellaneous Q4H PRN Qty: 2 Rx Instructions: no mask please, use with flovent and albuterol needs 1 mom's and 1 at dad's albuterol sulfate [ProAir HFA] 90 mcg/actuation HFA aerosol inhaler 2 puff Inhalation Q4H PRN Qty: 2 Rx Instructions: 2 puffs with spacer every 4hr as needed and prior to activity albuterol sulfate 90 mcg/actuation aerosol powdr breath activated 2 inh inhalation Q6H PRN (Reason: shortness of breath or wheezing) Qty: 1 1RF sertraline 100 mg tablet 100 mg PO DAILY Qty: 30 4RF Discharge Instructions Additional Instructions: Please keep your 2 & 6 wk appointments with your linen attendant, if you prefer the 2 week appointment can be made into a telehealth visit. Call for any and all concerns or questions. Stand Alone Forms: BC Instructions, BC Post Vaginal Deliver Activity:: Activity as Tolerated Equipment/Supplies:: No Equipment Needed Diet:: Normal Diet OB:DS Summary Summary Vaginal Delivery Method: Spontaneaous Episiotomy Description: None Laceration Description: None Laceration Extension: N/A Contraception Discussed Contraception Discussed: Yes Contraceptive Plan: Levonorgestrel Implant, Beccaria Infant Gender-Baby A: Female weight: 7 lb 8.637 oz Status at Discharge Functional status at discharge: independent ambulation Overall status at discharge: patient is progressing back to baseline Mental Status: mental status grossly normal Speech and Movement: speech and movement normal Mood: congruent mood Affect: normal affect Quality:SDOH Health Related Social Needs: No Data to Display Exam Physical Exam Vital signs: Temp Pulse Resp BP Pulse Ox 97.9 F 98 H 16 115/75 98 10/20/23 08:15 10/20/23 08:15 10/20/23 08:15 10/20/23 08:15 10/20/23 08:15 Vital Signs Reviewed: Yes Constitutional Constitutional: no acute distress, obese and cooperative HEENT Exam HEENT Exam: Normal Neck Exam Neck Exam: Normal Breast Exam Bilateral: Breast Exam: Normal and Soft Respiratory Exam Respiratory Exam: Normal Cardiovascular Exam Cardiovascular Exam: Normal Abdominal Exam Abdomen: Other (soft, nontender) Fundal Exam Fundus: Below Umbilicus and Firm Rectal Exam Rectal Exam: Normal Exam Perineum: Intact and Normal Extremities Exam Extremity Exam: Normal Back/Spine/Pelvis Exam Back Exam: Normal Skin Exam Skin Exam: Normal Neurological Exam Neurological Exam: Normal Psychiatric Exam Psychiatric Exam: Normal PFSH All Active Problems (Updated 10/20/23 @ 10:42 by Olive Staton) Term of female (Acute) Penicillin allergy (Acute) BMI 38.0-38.9,adult (Acute) Depression (Chronic) hx of meds Anxiety (Chronic) Insomnia (Acute) Medical History (Updated 10/20/23 @ 10:42 by Olive Staton) Contraceptive management Xulane patch 11/01/2022 History of kidney stones Hematuria Obstruction of left ureteropelvic junction (UPJ) due to stone Kidney disorder Pt. 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 [place] [facility] felt [place]us was normal in size. no further intervention necessary Influenza B Migraine with aura Asthma Surgical History History of appendectomy Tonsillectomy and adenoidectomy Family History Mother Asthma as child Depression Father Migraines Mental disorder depression/anxiety Alcohol abuse Depression Other Migraines PGM Diabetes MGM Alcohol abuse paternal side Essential hypertension PGF, PGGF Personal history of malignant neoplasm MGGM-brain, MGU-ear, Mcousin-nose/brain Mental disorder MGM Stroke PGGF Asthma MGM Dementia Maternal Cousin Vesicoureteral reflux with resulting kidney disease, unilateral Social History Smoking/Tobacco Use Status: Never Smoking risk assessment performed?: Yes Alcohol Intake: never Drug use: Never Substance use type: does not use Housing: apartment Education Level: high school Details: 07/19/18- Freshman at [employer] Pets and animals: Yes Pets and animals: dog(s) and fish Current gender identity: female Do you feel safe at home: Yes Do you feel safe in your relationship?: Yes History History 2 Para 1 Hx # Term Pregnancies 1 Multiple births 0 Hx # Pregnancies 0 Ectopic pregnancies 0 AB induced 0 Hx Number of Living Children 1 AB spontaneous 0 Past Pregnancies Del. Date GA/Weeks # Preg Succ Route Wgt Sex Labor Lgth Anesthesia Location Prov [facility] 06/30/21 39 No Yes vaginal 7 lb 10 oz Male 22 hours 44 min regional [facility] Natarajan CNM Delivery Date: 06/30/21 Last Updated by: Olive Staton Pit augmentation, epidural, apgars Ramy DS: Data Vitals/I&O Vitals and I&O: Vital Signs Temperature 97.9 F 10/20/23 08:15 Temperature Source Oral 10/20/23 08:15 Pulse 98 H 10/20/23 08:15 Pulse Rhythm Regular 10/20/23 08:15 Respiratory Rate 16 10/20/23 08:15 Blood Pressure 115/75 10/20/23 08:15 Blood Pressure Mean 88 10/20/23 08:15 Pulse Oximetry 98 10/20/23 08:15 Oxygen Delivery Method Room Air 10/18/23 00:31 Oxygen Flow Rate 0 10/18/23 00:31 Pain Level 2 10/20/23 08:15 Intake & Output 10/19/23 10/19/23 10/20/23 11:59 23:59 11:59 Other: Urine Color Pale Data Completed and Pending Labs on day of discharge: Labs from last 24 hours 10/17/23 23:51 VZV IgG Antibody Equivocal
[2023-10-20] MEDS: Varicella Virus Vaccine (Live) 0.5 ML SC (11:50)
== END 2023-10-20 13:00 | disposition home or self-care (01) | DRG 806 ==
PROVIDERS: Admitting Provider Advanced Practice Midwife; PCP Advanced Practice Midwife; Visit Provider Advanced Practice Midwife
DX: O99.52 Diseases of the respiratory system complicating childbirth (principal); O98.82 Other maternal infectious and parasitic diseases complicating childbirth; Z37.0 Single live birth; O99.354 Diseases of the nervous system complicating childbirth; Z3A.40 40 weeks gestation of pregnancy; O99.344 Other mental disorders complicating childbirth; F41.8 Other specified anxiety disorders; G47.00 Insomnia, unspecified; N20.0 Calculus of kidney; H10.89 Other conjunctivitis; K59.00 Constipation, unspecified; Q62.7 Congenital vesico-uretero-renal reflux; J45.909 Unspecified asthma, uncomplicated; G43.109 Migraine with aura, not intractable, without status migrainosus; O99.62 Diseases of the digestive system complicating childbirth; O77.0 Labor and delivery complicated by meconium in amniotic fluid; O69.81X0 Labor and delivery complicated by cord around neck, without compression, not applicable or unspecified; B99.8 Other infectious disease
CPT/HCPCS: 27788; 36415; 85027; 86787; 86850; 86900; 86901; 90716

== ENCOUNTER 2023-12-10 13:05 | Outpatient (REF) | payer MEDICAID, SELFPAY ==
--- OUTSIDE RECORDS SUMMARY | 2023-12-10 13:07 | XMS_ITS | Clinical Summary ---
Author Organization [facility] Address [address] [place] [address] Care Team Providers Care Idea Worker Name Role Phone Yared Medina MD Primary Care Provider [phone] Allergies Active Allergy Reactions Criticality Noted Date Comments Erythromycin Rash 10/08/2008 Medications No known medications Encounters Date Type Department Care Team Description 10/18/2023 Lab Requisition [facility] Pathology & Laboratory Medicine - [facility] [address] [place] [address] Outr Resulting Lab, Provider from Last 3 Months Medical History Medical History Date Comments VUR (vesicoureteric reflux) Social History Tobacco Use Types Packs/Day Years Used Date Smoking Tobacco: Never Assessed Interpersonal Safety Answer Date Record ed Physically Hurt Never 11/18/2019 Verbally Threaten Not on file 11/18/2019 Sex and Gender Information Value Date Recorded Sex Assigned at Not on file Gender Identity Not on file Sexual Orientation Not on file Obstetrics History Last Filed Vital Signs Vital Sign Reading Time Taken Comments Blood Pressure 106/57 10/08/2008 1334 EDT Pulse 122 10/08/2008 1357 EDT Temperature 36.4 ??C (97.5 ??F) 10/08/2008 1357 EDT Respiratory Rate 24 10/08/2008 1357 EDT Oxygen Saturation 98% 10/08/2008 1357 EDT Inhaled Oxygen Concentration - - Weight 21.8 kg (48 lb) 10/08/2008 1211 EDT Height - - Body Mass Index - - Plan of Treatment Health Maintenance Due Date Last Done Comments Hepatitis B Vaccine (1 of 3 - 19+ 3-dose series) 08/30 COVID-19 Vaccine (2022-24 season) 2022 Hepatitis C Screen Completed 12/08/2020 Procedures Procedure Name Priority Date/Time Associated Diagnosis Comments VARICELLA IGG ANTIBODY Routine 10/17/2023 23:51 EDT HEPATITIS C AB W REFLEX TO HCV RNA BY PCR Today 12/08/2020 15:40 EDT from Last 3 Months or Most Recently Relevant to Health Maintenance Results * VARICELLA IGG ANTIBODY (10/17/2023 23:51 EDT) Varicella IgG Ab Equivocal See Note 10/19/2023 13:59 EDT [facility] Comment:Recommend collecting a second sample for testing in no less than one to two weeks. Blood VENOUS BLOOD / Unknown 10/17/2023 23:51 EDT 10/18/2023 17:37 EDT Provider Outr Resulting Lab IMMUNOLOGY A ND SEROLOGY ORDERABLES Performing Organization Address [facility]/ZIP Co de Phone Number [facility] [address] [place] [address] * HEPATITIS C AB W REFLEX TO HCV RNA BY PCR (12/08/2020 15:40 EDT) Hep C Antibody Negative Negative 12/09/2020 8:51 EDT [facility] Blood VENOUS BLOOD / Unknown 12/08/2020 15:40 EDT 12/08/2020 20:46 EDT Provider Outr Resulting Lab CHEMISTRY & BLOOD GAS ORDERABLES Performing Organization Address City/[facility]/ZIP Co de Phone Number [facility] [address] [place] [address] from Last 3 Months or Most Recently Relevant to Health Maintenance Care Teams Idea Worker Relationship Specialty Start Date End Date Yared Medina MD [address] [place] [id number] PCP - General 09/05/08
--- OUTSIDE RECORDS SUMMARY | 2023-12-10 13:08 | XMS_ITS | Encounter Summary ---
Author Organization [facility] Address [address] [place] [address] Care Team Providers Care Professional Architect Name Role Phone Yared Medina MD Primary Care Provider [phone] Encounter Details Date Type Department Care Team (Late st Contact Info) Description 01/05/2023 Lab Requisition [facility] Pathology & Laboratory Medicine - [facility] [address] [place], [place] [id number] Outr Resulting Lab, Provider Social History Tobacco Use Types Packs/Day Years Used Date Smoking Tobacco: Never Assessed Interpersonal Safety Answer Date Record ed Physically Hurt Never 11/18/2019 Verbally Threaten Not on file 11/18/2019 Sex and Gender Information Value Date Recorded Sex Assigned at Not on file Gender Identity Not on file Sexual Orientation Not on file documented as of this encounter Plan of Treatment Not on file documented as of this encounter Procedures Procedure Name Priority Date/Time Associated Diagnosis Comments HEPATITIS B SURFACE ANTIBODY Routine 01/04/2023 11:40 EDT documented in this encounter Results * HEPATITIS B SURFACE ANTIBODY (01/04/2023 11:40 EDT) Hep B Surface Ab, Quantitative 3.5 See Note mIU/mL 01/06/2023 12:05 EDT [facility] Comment: Reference Range for Hep B Surface Ab, Quant: Positive: >= 10.0 mIU/mL Negative: ??< 10.0 mIU/mL Patient is presumed to not be immune to infection with Hepatitis B Virus. Hep B Surface Ab, Qualitative Negative See Note 01/06/2023 12:05 EDT [facility] Comment: Reference Range for Hep B Surface Ab, Qual: Unvaccinated: ??Negative Vaccinated: ??Positive Blood VENOUS BLOOD / Unknown 01/04/2023 11:40 EDT 01/05/2023 17:25 EDT Provider Outr Resulting Lab CHEMISTRY & BLOOD GAS ORDERABLES [facility] [address] [place] [address] documented in this encounter Visit Diagnoses Not on filedocumented in this encounter Care Teams Professional Architect Relationship Specialty Start Date End Date Yared Medina MD [address] [place] [phone] PCP - General 09/05/08 documented as of this encounter
--- OUTSIDE RECORDS SUMMARY | 2023-12-10 13:08 | XMS_ITS | Encounter Summary ---
Author Organization [facility] Address [address] [place] [address] Care Team Providers Care Registered Nurse Ambulatory Name Role Phone Yared Medina MD Primary Care Provider [phone] Encounter Details Date Type Department Care Team (Late st Contact Info) Description 07/25/2007 Before PRISM Converted Visit ([facility]) [facility] - [facility] conversion [address], [place] [id number] Jami Hoang MD [address] [place] [address] Social History Tobacco Use Types Packs/Day Years Used Date Smoking Tobacco: Never Assessed Sex and Gender Information Value Date Recorded Sex Assigned at Not on file Gender Identity Not on file Sexual Orientation Not on file documented as of this encounter Progress Notes * Jami Hoang MD - 01/09/2009 0208 EDT PROGRESS/FOLLOWUP NOTE - 07/25/2007 Yared Medina M.D. [address] [place] [address] [facility], [place] [address] Dear Yared: I saw Addie with both of her parents in clinic today for the first time since 03/2005. Her parentstell me that Addie has not had any further UTIs since her first one. They tell me that she continues to take trimethoprim sulfa once daily and tolerates it well. They did bring with them a disk thatshows the radionuclide cystogram that was done in April at [facility]. I can see from that study that there is bilateral reflux to the level of the kidneys, although it is not possible to grade the reflux with this type of study. Of interest Addie's parents said that she was pretty freaked out bythe mask-induced anesthesia, but otherwise the study went well. Addie is said not to have had any UTIs since the first one in 03/2005. She was potty-trained for day and night soon after that and has remained reliably dry ever since then. She does have hard difficult stools at times and her parents have used some MiraLax in the past, but they are not using any currently and they think that right now she has pretty comfortable easy daily stools. There is a cousin on the maternal side who has bad reflux and reflux nephropathy. She is apparentlycollege age at this time and has had a couple of operations related to her bladder function. They think that she might have some chronic kidney disease, as well, with decreased function. Parents are not particularly interested in doing surgery right now if it can be avoided, but they do say that they would like to follow up more closely. On physical exam her height was 101 cm, weight 17.8 kg, and blood pressure 90/56. Her heart and lungs are normal. Her abdomen is soft. Her kidneys are not tender at all. Her genitalia are normal Paco 1 female. Her presacral area and her lower extremity strength and DTRs are normal. A urinalysis today shows specific gravity less than 1.005, pH 7, and is otherwise negative. Addie's parents say that she drinks lots of water and that is reflected in her low urine specific gravity. As I said, I reviewed the VCUGs done at [facility] and see that she has persistent reflux of some degree to the level of her kidneys. At present I would suggest that Addie stop her trimethoprim sulfa prophylaxis. She should have a urine culture done quickly of course if she has any return of anysymptoms at all. If she does have any break-through infections once off trimethoprim sulfa, I would like to hear about it soon and see her back here soon thereafter for consideration of surgical approach. If she stays free of infection, however, I wouldlike to see her back here in 1 year at which time we will repeat a fluoroscopic VCUG and do a renal ultrasound. I explained to her parents that the sedation that we are using currently for children of her age would be IV induction without a mask, and they thought that might be a little easier for her. I also explained to them that it would be important for them to get back in a year and not to miss that timing quite as long as we did this time around. They seemed to understand that and are well- motivated to carry through at present. Please let me know if other questions need to be answered or if you have questions that I have not answered adequ ately. Thanks for getting her back over here. I will look forward to seeing her next year or sooner. Sincerely, Signed by Jami Hoang MD 08/03/2007 19:04 Jami Hoang MD Division of Pediatric Nephrology [phone] D: - Jami Hoang MD A - KENISHA Job ID: [id number] Doc ID: [id number] cc: Yared Medina MD documented in this encounter Plan of Treatment Not on file documented as of this encounter Visit Diagnoses Not on filedocumented in this encounter Care Teams Registered Nurse Ambulatory Relationship Specialty Start Date End Date Yared Medina MD [address] [place] [id number] PCP - General 09/05/08 documented as of this encounter
--- OUTSIDE RECORDS SUMMARY | 2023-12-10 13:08 | XMS_ITS | Encounter Summary ---
Author Organization [facility] Address [address] [place] [address] Care Team Providers Care Computer Application Developer Name Role Phone Yared Medina MD Primary Care Provider [phone] Encounter Details Date Type Department Care Team (Late st Contact Info) Description 10/08/2008 10:35 EDT - 10/08/2008 20:12 EDT Hospital Encounter [facility] Perioperative Services- [facility] [address], [place] [id number] Jami Hoang MD [address] [place] [address] Discharge Disposition: Home or Self Care Social History Tobacco Use Types Packs/Day Years Used Date Smoking Tobacco: Never Assessed Sex and Gender Information Value Date Recorded Sex Assigned at Not on file Gender Identity Not on file Sexual Orientation Not on file documented as of this encounter Last Filed Vital Signs Vital Sign Reading Time Taken Comments Blood Pressure 106/57 10/08/2008 1334 EDT Pulse 122 10/08/2008 1357 EDT Temperature 36.4 ??C (97.5 ??F) 10/08/2008 1357 EDT Respiratory Rate 24 10/08/2008 1357 EDT Oxygen Saturation 98% 10/08/2008 1357 EDT Inhaled Oxygen Concentration - - Weight 21.8 kg (48 lb) 10/08/2008 1211 EDT Height - - Body Mass Index - - documented in this encounter Discharge Disposition Disposition Code Departure Means Destination Home or Self Care documented in this encounter Progress Notes * Sofia Meehan RN - 10/08/2008 1337 EDT Arrive back to [facility] following VCUG under anesthesia. Sleeping, parents at bedside. D/C instructions reviewed, ?'s answered, parents verbalized understanding. 1345 Woke up, crying, SL D/c'd, Addie c/o urge to void. Dad carried her to BR to void, voided x2. Back to stretcher, crying, unable to obtain any VS. 1350 Linda. Popsicle, parents ready for discharge, Addie calmer able to amb. With minimal assist. * Sofia Meehan RN - 10/08/2008 1105 EDT Addie arrived to [facility] with parents. Emla cream applied, pt. Sent to radiology for ultrasound. To return to [facility] following U/S to get ready for sedated VCUG. 1208 Returned to [facility] to get ready for VCUG. 1240 SL placed, pt to be transported to fluoroscopy by anesthesia, with parents and Dorothy Tomlinson CCLS in attendance. Pt linda procedure well, easily distracted. documented in this encounter H&P Notes * Inpatient, Physician - 10/15/2008 1519 EDT documented in this encounter Procedure Notes * Inpatient, Physician - 10/15/2008 1519 EDTAssociated Order(s): ORDERS - SCANNED documented in this encounter Consult Notes * Alexa Tomlinson - 10/08/2008 1518 EDT S: Field Service Coordinator consulted for procedural education and support. O: Adide arrived to [facility] with mom, dad, and younger brother. A: Addie presented shy with strangers. She is distracted easily to her surroundings. [facility] kept procedural education exciting and changing from one activity to another. Addie did well with Emla placement. She arrived in ultrasound where she met another Field Service Coordinator. Addie had a difficult time getting on the ultrasound bed. She presented with the dislike of the possibility it mentshe was getting a mask induction. Child Life supported Addie and her family through her Ultrasound. Addie watched Sponge Butch and her little brother watched the movie Cars. She arrived back up to the [facility] were she received VCUG and I.V education. Addie's I.V went well. Child Life, mom, dad, and Addie used [employer] I-spy and light fans as distraction. Distraction worked very well. Addie does not like the I.V and needed to be reminded not to pull it out. When it was time for anesthesia, Addie had a difficult time falling asleep. However, her VCUG procedure went well, she voided when asked. She arrived in the [facility] post VCUG still asleep. Child Life had a slice of cheese pizza ordered from [facility]. P: (1) Field Service Coordinator will continue to follow Addie throughout her procedural day. (2) [employer] will provide education and distraction for further appointments upon request. FELICITA LeavittS Child Life Department [facility] Pager#[phone] documented in this encounter OR Notes * Anesthesia Procedure Notes - REPAIRER VENEER SHEET, LEIGHTON 2 - 11/03/2012 1217 EDT * Anesthesia Preprocedure Evaluation - Inpatient, Physician - 10/08/2008 1233 EDT documented in this encounter Miscellaneous Notes * Scanned Note-Null - Inpatient, Physician - 11/03/2008 0819 EDT * Scanned Note-Null - Inpatient, Physician - 10/15/2008 1519 EDT * Scanned Note-Null - Inpatient, Physician - 10/15/2008 1519 EDT documented in this encounter Plan of Treatment Not on file documented as of this encounter Procedures Procedure Name Priority Date/Time Associated Diagnosis Comments ORDERS - SCANNED 10/15/2008 15:1 9 EDT BACTERIAL CULTURE, URINE Routine 10/08/2008 14:49 EDT documented in this encounter Results * ORDERS - SCANNED (10/15/2008 15:19 EDT) 10/15/2008 15:1 9 EDT Narrative Procedure Note Inpatient, Physician - 10/15/2008 15:19 EDT Physician Inpatient MD ADMISSION ORDERAB LES * BACTERIAL CULTURE, URINE (10/08/2008 14:49 EDT) Specimen Description Urine Catheteriz ed [facility] Result No growth [facility] Report Status Final 10/09/2008 [facility] 10/08/2008 14:4 9 EDT 10/08/2008 14:49 EDT Jami Hoang MD MICROBIOLOGY - GENER AL ORDERABLES [facility] [address] [place] [address] documented in this encounter Visit Diagnoses Not on filedocumented in this encounter Administered Medications Inactive Administered Medications - up to 3 most recent administrations Medication Order MAR Action Action Date Dose Rate Site lidocaine-prilocaine (EMLA) 2.5-2.5 % cream topical (top), Once (Without Time Specified), 1 dose, Starting on Tue10/08/08 at 1050, Until Tue10/08/08 at 1104, Pre Op Day of Surgery Given 10/08/2008 11:04 EDT sodium chloride 0.9 % (NS) infusion at 25 mL/hr, intravenous, CONTINUOUS, Starting on Tue10/08/08 at 1115, Until Tue10/08/08 at 2213, Routine, Pre Op Day of Surgery New Bag 10/08/2008 12:45 EDT 25 mL/hr documented in this encounter Active and Recently Administered Medications Times are shown in EDT. Scheduled Medication Order 10/06/2008 10/07/2008 10/08/2008 lidocaine-prilocaine (EMLA) 2.5-2.5 % cream (COMPLETED) topical (top), Once (Without Time Specified), 1 dose, Starting on Tue10/08/08 at 1050, Until Tue10/08/08 at 1104, Pre Op Day of Surgery 1104 (Given - Provid er: Sofia Meehan RN) Continuous Medication Order 10/06/2008 10/07/2008 10/08/2008 sodium chloride 0.9 % (NS) infusion (CANCELED) at 25 mL/hr, intravenous, CONTINUOUS, Starting on Tue10/08/08 at 1115, Until Tue10/08/08 at 2213, Routine, Pre Op Day of Surgery 1245 (New Bag - Prov ider: Sofia Meehan RN)1335 (Completed - Provider: Sofia Meehan RN) documented in this encounter Orders Medications Ordered That Arsenio ht Not Have Been Administered Count Last Ordered Date First Ordered Date acetaminophen (TYLENOL) solu tion 218.1-326.9 mg 1 10/08/2008 acetaminophen (TYLENOL) tablet 325 mg 1 atropine 0.1 mg/mL 10 mL syringe 0.5 mg 2 0 10/08/2008 ibuprofen (ADVIL;MOTRIN) suspension 218 mg 1 10/08/2008 ibuprofen (MOTRIN) tablet 200 mg 1 10/09/19 naloxone (NARCAN) injection 0.2 mg 2 2008 Nursing Count Last Ordered Date First Orde red Date APPLY WARMING BLANKET 2 10/08/2008 CARDIAC MONITORING 2 10/08/2008 INSERT PERIPHERAL IV 1 10/08/2008 MONITOR AIRWAY 2 10/08/2008 NOTIFY SERVICE 2 10/08/2008 PULSE OXIMETRY 2 10/08/2008 VITAL SIGNS 2 10/08/2008 documented in this encounter Care Teams Computer Application Developer Relationship Specialty Start Date End Date Yared Medina MD [address] [place] [address] PCP - General 09/05/08 documented as of this encounter
--- OUTSIDE RECORDS SUMMARY | 2023-12-10 13:08 | XMS_ITS | Encounter Summary ---
Author Organization [facility] Address [address] [place] [address] Care Team Providers Care Small Business Consultant Name Role Phone Yared Medina MD Primary Care Provider [phone] Encounter Details Date Type Department Care Team (Late st Contact Info) Description 09/11/2020 Lab Requisition [facility] Pathology & Laboratory Medicine - [facility] [address], [place] [address] Outr Resulting Lab, Provider Social History Tobacco [...] Procedure Name Priority Date/Time Associated Diagnosis Comments ZZCOVID-19 TEST [facility] PCR Today 09/10/2020 11:51 EDT COVID-19 TESTING Routine 09/10/2020 11:5 1 EDT documented in this encounter Results * COVID-19 TEST [facility] PCR (09/10/2020 11:51 EDT) Swab ENTIRE NASOPHARYNX / Unknown 09/10/2020 11:51 EDT 09/11/2020 15:56 EDT Provider Outr Resulting Lab MICROBIOLOGY - GENERAL ORDERABLES [facility] [address] [place] [address] * COVID-19 TESTING (09/10/2020 11:51 EDT) COVID-19 rt-PCR Result Negative Negative 09/12/2020 14:45 EDT [facility] Comment: This test has not been FDA cleared or approved. This test has been authorized by FDA under an EUA for use by authorized laboratories. This test has been authorized only for detection of nucleic acid from 2019-nCoV, not for any other viruses or pathogens. This test is only authorized for the duration of the declaration that circumstances exist justifying the authorization of emergency use of in vitro diagnostic tests for detection and/or diagnosis of 2019-nCoV under section 564(b)(1) of Act, 21 U.S.C ?? 360bbb-3(b) (1), unless the authorization is terminated or revoked sooner. Negative results do not preclude 2019-nCoV infection and should not be used as the sole basis for treatment or other patient management decisions. Negative results must be combined with clinical observations, patient history, and epidemiological information. This test was developed and its performance characteristics determined by [facility]. It has not been cleared or approved by the US Food and Drug Administration. FDA does not require this test to go through premarket FDA review. This test is used for clinical purposes. It should not be regarded as investigational or for research. This laboratory is certified under the Clinical Laboratory Improvement Amendments (CLIA) as qualified to perform high complexity clinical laboratory testing. This test is based on the [facility] COVID-19 Emergency Use Authorization (EUA) assay, with minor modification as defined by the FDA Performed on the Reissuedo 7 Flex RT-PCR System. Performing Lab [facility] 09/12/2020 14:45 EDT [facility] Swab 09/10/2020 11:5 1 EDT 09/11/2020 15:56 EDT Provider Outr Resulting Lab MICROBIOLOGY - GENERAL ORDERABLES [facility] [address] [place] [address] documented in this encounter Visit Diagnoses Not on filedocumented in this encounter Care Teams Small Business Consultant Relationship Specialty Start Date End Date Yared Medina MD [address] [place] [phone] PCP - General 09/05/08 documented as of this encounter
--- OUTSIDE RECORDS SUMMARY | 2023-12-10 13:08 | XMS_ITS | Encounter Summary ---
Author Organization [facility] [place] [address] Care Team Providers Care Claims Adjustor Name Role Phone Heather Good APRN Primary Care Provider [phone] Encounter Details Date Type Department Care Team (Late st Contact Info) Description 01/01/2020 Ancillary Procedure [place] [address] Heather Good APRN [address] [place] [address] [place], [place] [id number] Social History Tobacco Use Types Packs/Day Years Used Date Smoking Tobacco: Passive Smo ke Exposure - Never Smoker Cigarettes Comments:Mom smokes outside Sex and Gender Information Value Date Recorded Sex Assigned at Not on file Gender Identity Not on file Sexual Orientation Not on file documented as of this encounter Plan of Treatment Not on file documented as of this encounter Procedures Procedure Name Priority Date/Time Associated Diagnosis Comments FILM LIBRARY STORAGE ONLY CT HEAD AND SPINE Routine 01/01/2020 12:00 AM EDT documented in this encounter Results * Film Library- Storage Only CT Head And Spine (01/01/2020 12:00 AM EDT) Narrative [facility] - 01/17/2020 11:06 AM EDT This exam is auto-finalizing. It's purpose is for storage only. Heather Good APRN IMG FILM LIBRARY ORD ERABLES [place], [place] documented in this encounter Visit Diagnoses Not on filedocumented in this encounter Care Teams Claims Adjustor Relationship Specialty Start Date End Date Heather Good, CHERRY GROWER [address] [place] [address] PCP - General Family Medicine 06/06/15 documented as of this encounter
--- OUTSIDE RECORDS SUMMARY | 2023-12-10 13:08 | XMS_ITS | Encounter Summary ---
Author Organization [facility] Address [address] [place] [address] Care Team Providers Care Intervention Nurse Name Role Phone Yared Medina MD Primary Care Provider [phone] Encounter Details Date Type Department Care Team (Late st Contact Info) Description 12/08/2020 Lab Requisition [facility] Pathology & Laboratory Medicine - [facility] [address] [place], [place] [address] Outr Resulting Lab, Provider Social History Tobacco [...] Procedure Name Priority Date/Time Associated Diagnosis Comments RUBELLA IGG ANTIBODY Routine 12/08/2020 15:40 EDT VARICELLA IGG ANTIBODY Routine 12/08/2020 15:40 EDT documented in this encounter Results * VARICELLA IGG ANTIBODY (12/08/2020 15:40 EDT) Varicella IgG Ab Negative See Note 12/09/2020 11:22 EDT [facility] Comment:Absence of detectabl e Varicella Zoster virus IgG antibodies. A negative result generally indicates no detectable antibody, but does not rule out acute infection. If VZV exposure is suspected, a second sample should be collected and tested no less than one or two weeks later. Blood VENOUS BLOOD / Unknown 12/08/2020 15:40 EDT 12/08/2020 20:51 EDT Provider Outr Resulting Lab IMMUNOLOGY A ND SEROLOGY ORDERABLES Performing Organization Address [facility] Co de Phone Number [facility] [address] [place] [address] * RUBELLA IGG ANTIBODY (12/08/2020 15:40 EDT) Rubella IgG Ab Equivocal See Note 12/09/2020 14:13 EDT [facility] Comment:Recommend collecting a second sample for Rubella IgG Ab testing in no less than one to two weeks. Blood VENOUS BLOOD / Unknown 12/08/2020 15:40 EDT 12/08/2020 20:51 EDT Provider Outr Resulting Lab CHEMISTRY & BLOOD GAS ORDERABLES Performing Organization Address [facility] de Phone Number [facility] [address] [place] [address] documented in this encounter Visit Diagnoses Not on filedocumented in this encounter Care Teams Intervention Nurse Relationship Specialty Start Date End Date Yared Medina MD [address] [place] [phone] PCP - General 09/05/08 documented as of this encounter
--- OUTSIDE RECORDS SUMMARY | 2023-12-10 13:08 | XMS_ITS | Encounter Summary ---
Author Organization [facility] Address [address] [place] [address] Care Team Providers Care Door To Door Sales Representative Name Role Phone Unavailable Primary Care Provider Unavailabl e Encounter Details Date Type Department Care Team (Late st Contact Info) Description 01/22/2005 10:12 EDT Hospital Encounter [facility] [address] [place] [address] Jami Hoang MD [address] [place] [address] Social History Tobacco Use Types [...]
--- OUTSIDE RECORDS SUMMARY | 2023-12-10 13:08 | XMS_ITS | Encounter Summary ---
Author Organization [facility] Address [address] [place] [address] Care Team Providers Care Drying Room Supervisor Name Role Phone Yared Medina MD Primary Care Provider [phone] Encounter Details Date Type Department Care Team (Latest Contact Info) Description 07/08/2018 14:14 EDT - 07/08/2018 23:59 EDT Hospital Encounter [address] [address] Unknown, Provider, Discharge Disposition: Home or Self Care Social History Tobacco Use Types Packs/Day Years Used Date Smoking Tobacco: Never Assessed Sex and Gender Information Value Date Recorded Sex Assigned at Not on file Gender Identity Not on file Sexual Orientation Not on file documented as of this encounter Discharge Disposition Disposition Code Departure Means Destination Home or Self Usp documented in this encounter Plan of Treatment Not on file documented as of this encounter Visit Diagnoses Not on filedocumented in this encounter Care Teams Drying Room Supervisor Relationship Specialty Start Date End Date Yared Medina MD [address] [place] [address] [place] [phone] PCP - General 09/05/08 documented as of this encounter
--- OUTSIDE RECORDS SUMMARY | 2023-12-10 13:08 | XMS_ITS | Clinical Summary ---
Author Organization [facility] Address [facility] [place] [place] [address] Care Team Providers Care Paid Intern Name Role Phone CooleemeeHeather andres KYARA Primary Care Provider [phone] Allergies Active Allergy Reactions Criticality Noted Date Comments Erythromycin Base Rash 06/26/2015 Medications Medication Sig Dispensed Refills Start Date End Date Status penicillin v potassium (VEETID) 500 mg Tablet Twice a day 12/20/2014 A ctive fluticasone (FLOVENT) 44 mcg/actuation HFA Aerosol Inhaler Twice a day 02/12/2014 Active albuterol (PROVENTIL HFA;VENTOLIN HFA;PROAIR) 90 mcg/actuation HFA Aerosol Inhaler Every 4 hours, as needed 12/12/2014 Active Active Problems Problem Noted Date Diagnosed Date Anxiety 06/26/2015 Asthma 06/26/2015 Assessment & Plan (06/26/2015 4:31 PM EST): Mild persistent asthma with regular cough and chest tightness with exercise despite Rx for Flovent 44 2 puffs twice daily (but only using this twice per week). Recommend Flovent 44 2 puffs twice daily with spacer (encouraged adherence) If cough persists recommend follow-up; additional considerations could be consideration of an exercise challenge, methacholine challenge, or chest X-ray. GERD could be a consideration but Addie denies symptoms of reflux, so this seems less likely. Recommend as needed albuterol metered dose inhaler (MDI) and spacer. May use if needed, seek care for severe symptoms. If poor asthma control, consider controller therapy or controller therapy increase. Signs of worsening asthma control include a night-time cough that wakes you up more than twice per month, coughing, wheezing, chest-tightness or shortness of breath more than once to twice per week, trouble keeping up with peers or with exercise, greater than 20% difference between morning and evening peak flows, or more than one course of oral steroids per year for asthma. Recommend annual flu shot In general , asthma follow-up should be scheduled in the primary care or allergy clinic every 2-6 weeks when achieving asthma control (or adjusting therapy) and every 3 to 12 months when control is achieved. For children over 5 years of age spirometry should be performed ever 6 months to 2 years to assess lung function. For children younger than 5 years of age, consider updating allergy skin testing at 5-6 years of age if symptoms persist. For patients receiving controller therapy, step-down in asthma controller therapy may be appropriate in patients with stable well controlled asthma Sneezing 06/26/2015 Assessment & Plan (06/26/2015 4:15 PM EST): If bothersome may try Zytec at bedtime seasonally or year round; however, negative skin testing argues against benefit of oral antihistamine therapy. A general approach to rhinoconjunctivitis is outlined below: -for allergic rhinoconjunctivitis symptoms, Zyrtec (cetirizine) or Claritin (loratadine) may be effective. The adult dose of each is 10mg. Patients usually use one or the other (not both at the same time). Zyrtec can be sedating so is usually given at night -- if using make sure there is no residual sedation or impairment the next morning and do not drive or operate heavy machinery if sedated or impaired. For eye symptoms an opthalmic antihistamine / mast cell stabilizer eye drop (such as over the counter Zaditor) may be effective and may be used as needed. May also use refresh tears (carboxymethylcellulose) for in between times when needing to rinse/ refresh eyes. -for both allergic and non-allergic rhinitis nasal saline (ocean nasal saline spray) can be effective at removing mucous. At times patients consider and use larger volume sinus rinses (such as the neilmed sinus rinse, must clean well). Perhaps the most potent allergy medicine to be considered is a nasal steroid spray (such as over the counter Nasacort AQ, Flonase, or prescription Nasonex). These medicines act on allergic cells and mediators and may take a few weeks to become effective. Nasal steroid sprays can also be effective in non-allergic rhinitis. Risks of use include nose bleeds and rarely nasal septal perforation. -particularly for non-allergic rhinitis symptoms, a nasal antihistamine/mast cell stabilizer spray (such as a prescription called Astelin) may be used and may be effective. Sometimes this is used together with a nasal steroid spray -for allergic symptoms with a component of asthma, singulair (montelukast) is sometimes effective and may be used in combination with other therapies -for allergic symptoms that are not adequately treated with medicines (or if there is a strong desire to reduce medications) allergen immunotherapy may be a consideration Headache(784.0) 06/26/2015 Assessment & Plan (06/26/2015 4:14 PM EST): Recommend primary care follow-up Rash 06/26/2015 Assessment & Plan (06/26/2015 3:31 PM EST): May represent tendency to contact dermatitis. If continued problems consider patch testing with Dr. Dick Encounter for allergy testing 06/26/2015 Overview (06/26/2015): 06/2015 SKIN TESTING RESULTS Allergen (wheal & flare recorded in mm) Negative: all allergens tested Dust mites: D. Farinae (0,3), D. Pteronyssinus (0,3) Animals: Cat (0,3), Dog (0,3), AP Dog (0,3) Grass pollen: Grass mix (0,3), Uriel (0,3) Tree pollen: Tree mix (0,3), Zi (0,3), Birch (0,3), [place] (0,2), Maple (0,2), [place] (0,2), [place] pollen: [place] mix (0,2), Ragweed (0,2), Sheep Olamide (0,2) Molds: Aspergillus (0,2), Alternaria (0,2), Penicillium (0,2), Cladosporium (0,2), Helminthosporium (0,2) Controls: Positive (5,30), Negative (0,3) Method: Single prick; Location: Back; Placed by: nurse; Reading/interpretation: MD * Reactions may still occur despite negative skin tests. Lower skin test class does NOT predict reaction severity (severe reactions may still occur with negative or low positive skin tests). Negative skin tests to foods do not have predictive value for delayed food reactions or intolerance. Dog epithelia (valle) is low in Can f 1 but high in Can f 3; AP Dog ([place]andana) dander is high in Can f 1 but low in Can f 3. 06/26/2015 Spirometry: FEV1 2.38L (96 %); FVC 2.51L (89%); ratio 0.95. Normal Keratosis pilaris 06/03/2015 Assessment & Plan (06/26/2015 4:15 PM EST): Hydrate skin and use emoilient Migraine with aura 04/30/2015 Snoring 02/13/2015 Epistaxis 01/02/2015 Family History Medical History Relation Comments Asthma Brother Allergic Rhinitis Father Asthma Father Asthma Maternal Grandmother Asthma Mother as child Asthma Sister Food Allergy Neg Hx Relation Status Comments Brother Father Maternal Grandmother Mother Sister Social History Tobacco Use Types Packs/Day Years Used Date Smoking Tobacco: Passive Smo ke Exposure - Never Smoker Cigarettes Comments:Mom smokes outside Sex and Gender Information Value Date Recorded Sex Assigned at Not on file Gender Identity Not on file Sexual Orientation Not on file Last Filed Vital Signs Vital Sign Reading Time Taken Comments Blood Pressure 102/56 06/26/2015 2:28 PM EST Pulse 94 06/26/2015 2:28 PM EST Temperature 36.4 ??C (97.5 ??F) 06/26/2015 2:28 PM ES T Respiratory Rate 22 06/26/2015 2:28 PM EST Oxygen Saturation 99% 06/26/2015 2:28 PM EST Inhaled Oxygen Concentration - - Weight 73.7 kg (162 lb 6.4 oz) 06/26/2015 2:28 P M EST Height 151 cm (4' 11.45) 06/26/2015 2:28 PM EST Body Mass Index 32.31 06/26/2015 2:28 PM EST Plan of Treatment Health Maintenance Due Date Last Done Comments Chlamydia Screening 08/30/2018 HPV vaccine (1 - 3-dose series) 08/30/2018 HIV screen 08/30/2021 Hepatitis C Screening 08/30/2021 Hepatitis B vaccine (0-59 yrs) (1) 08/30/2022 Tdap adult 08/30/2022 Tetanus vaccine 08/30/2022 Covid-19 Vaccine (1 - 2022-24 season) 2022 Influenza (Flu) vaccine (1 o f 1 - Influenza standard series) 12/18/2023 Care Teams Paid Intern Relationship Specialty Start Date End Date Heather Good, VICE PRESIDENT [employer] [address] [place], [place] [id number] PCP - General Family Medicine 06/06/15
--- OUTSIDE RECORDS SUMMARY | 2023-12-10 13:08 | XMS_ITS | Encounter Summary ---
Author Organization [facility] Address [address] [place] [address] Care Team Providers Care Telegraph Dispatcher Name Role Phone Unavailable Primary Care Provider Unavailabl e Encounter Details Date Type Department Care Team (Late st Contact Info) Description 03/23/2005 10:24 EST Hospital Encounter [facility] [address] [place], [place] [id number] Jami Hoang MD [address] [place] [address] Social History Tobacco Use Types [...]
--- OUTSIDE RECORDS SUMMARY | 2023-12-10 13:08 | XMS_ITS | Encounter Summary ---
Author Organization [facility] Address [address] [place] [address] Care Team Providers Care Call Center Recruiter Name Role Phone Yared Medina MD Primary Care Provider [phone] Encounter Details Date Type Department Care Team (Late st Contact Info) Description 10/08/[address] [facility] Medical [facility] Developmental [facility] - [facility] [address], [place] [id number] Jami Hoang MD [address] [place] [address] Social History Tobacco Use Types Packs/Day Years Used Date Smoking Tobacco: Never Assessed Sex and Gender Information Value Date Recorded Sex Assigned at Not on file Gender Identity Not on file Sexual Orientation Not on file documented as of this encounter Plan of Treatment Not on file documented as of this encounter Procedures Procedure Name Priority Date/Time Associated Diagnosis Comments FL VOIDING CYSTOURETHROGRAM 10/08/2008 13:32 EDT RAD US RETROPERITONEAL COMPLETE 10/08/2008 12:00 EDT documented in this encounter Results * FL VOIDING CYSTOURETHROGRAM (10/08/2008 13:32 EDT) Anatomical Region Laterality Modality Other 10/08/2008 13:3 2 EDT 10/08/2008 14:13 EDT Narrative 10/08/2008 14:13 EDT [facility] History: Bilateral vesicoureteral reflux. Findings: The bladder was catheterized in a sterile fashion with an 8 ??Indonesian feeding tube. The predicted bladder capacity was 210 mL. A total volume of 300 mL of ??iodinated contrast was administered during the study. A ct scan technologist image demonstrates normal hips and sacrum. The abdominal bowel gas pattern is within normal limits. No pathologic calcifications are identified. There is left grade 2 vesicoureteral reflux. The site of left ureteral insertion is normal. There is right grade 2 vesicoureteral reflux. The site of right ureteral insertion is normal. Voiding images showed a normal female urethra. The reflux drained promptly. Impression: 1. Left grade 2 vesicoureteral reflux. 2. Right grade 2 vesicoureteral reflux. Procedure Note 10/08/2008 [facility] History: Bilateral vesicoureteral reflux. Findings: The bladder was catheterized in a sterile fashion with an 8 Indonesian feeding tube. The predicted bladder capacity was 210 mL. A total volume of 300 mL of iodinated contrast was administered during the study. A ct scan technologist image demonstrates normal hips and sacrum. The abdominal bowel gas pattern is within normal limits. No pathologic calcifications are identified. There is left grade 2 vesicoureteral reflux. The site of left ureteral insertion is normal. There is right grade 2 vesicoureteral reflux. The site of right ureteral insertion is normal. Voiding images showed a normal female urethra. The reflux drained promptly. Impression: 1. Left grade 2 vesicoureteral reflux. 2. Right grade 2 vesicoureteral reflux. Jami Hoang MD IMG FLUOROSCOPY KANU RIOS * RAD US RETROPERITONEAL COMPLETE (10/08/2008 12:00 EDT) Anatomical Region Laterality Modality Other 10/08/2008 12:0 0 EDT 10/08/2008 12:49 EDT Narrative 10/08/2008 12:49 EDT History: bilateral vesicoureteral reflux. Comparison: July 25, 2007. Findings: Ultrasound imaging of the kidneys and bladder was performed. The right kidney measures 8.0, previously measuring 7.7 cm in length and has normal corticomedullary differentiation. There is no hydronephrosis, stone or mass. The right kidney is between the 50th and 95th percentile in size for age. The left kidney measures 8.2, previously measuring 7.9 cm in length and has normal corticomedullary differentiation. There is no hydronephrosis, stone or mass. The left kidney is between the 50th and the 95th percentile in size for age. The ??study was performed with a normal appearing, full urinary bladder. Impression: Normal renal and bladder ultrasound, demonstrating interval renal growth. Procedure Note 10/08/2008 History: bilateral vesicoureteral reflux. Comparison: July 25, 2007. Findings: Ultrasound imaging of the kidneys and bladder was performed. The right kidney measures 8.0, previously measuring 7.7 cm in length and has normal corticomedullary differentiation. There is no hydronephrosis, stone or mass. The right kidney is between the 50th and 95th percentile in size for age. The left kidney measures 8.2, previously measuring 7.9 cm in length and has normal corticomedullary differentiation. There is no hydronephrosis, stone or mass. The left kidney is between the 50th and the 95th percentile in size for age. The study was performed with a normal appearing, full urinary bladder. Impression: Normal renal and bladder ultrasound, demonstrating interval renal growth. Jami Hoang MD IMG US ORDERABLES documented in this encounter Visit Diagnoses Not on filedocumented in this encounter Care Teams Call Center Recruiter Relationship Specialty Start Date End Date Yared Medina MD [address] [place] [address] PCP - General 09/05/08 documented as of this encounter
--- OUTSIDE RECORDS SUMMARY | 2023-12-10 13:08 | XMS_ITS | Encounter Summary ---
[facility] [place] [address] Care Team Providers Care Vmware Architect Name Role Phone Heather Good APRN Primary Care Provider [phone] Encounter Details Date Type Department Care Team (Late st Contact Info) Description 01/01/2020 12:10 AM EDT Ancillary Procedure [place] [id number] Heather Good PRESS OPERATOR ASSISTANT [address] [place] [address] [place], [place] [address] Social History Tobacco Use Types Packs/Day Years [...] Associated Diagnosis Comments FILM LIBRARY STORAGE ONLY DX HIP Routine 01/01/2020 12:10 AM EDT documented in this encounter Results * Film Library- Storage Only DX Hip (01/01/2020 12:10 AM EDT) Narrative [facility] - 01/17/2020 11:23 AM EDT This exam is auto-finalizing. It's purpose is for storage only. Heather Good APRN IMG FILM LIBRARY ORD ERABLES [place], [place] documented in this encounter Visit Diagnoses Not on filedocumented in this encounter Care Teams Vmware Architect Relationship Specialty Start Date End Date Heather Good, PRESS OPERATOR ASSISTANT [address] [place] [address] PCP - General Family Medicine 06/06/15 documented as of this encounter
--- OUTSIDE RECORDS SUMMARY | 2023-12-10 13:08 | XMS_ITS | Encounter Summary ---
Author Organization [facility] Address [address] [place] [address] Care Team Providers Care Inspector Handbag Frames Name Role Phone Yared Medina MD Primary Care Provider [phone] Encounter Details Date Type Department Care Team (Late st Contact Info) Description 01/05/2023 Lab Requisition [facility] Pathology & Laboratory Medicine - [facility] [address], [place] [address] Outr Resulting Lab, Provider Social History Tobacco [...] Procedure Name Priority Date/Time Associated Diagnosis Comments QUANTIFERON MITOGEN (PERFORMABLE) Today 01/04/2023 11:40 EDT QUANTIFERON TB2 (PERFORMABLE) Today 01/04/2023 11:40 EDT QUANTIFERON TB1 (PERFORMABLE) Today 01/04/2023 11:40 EDT QUANTIFERON NIL (PERFORMABLE) Today 01/04/2023 11:40 EDT QUANTIFERON INTERPRETATION (PERFORMABLE) Today 01/04/2023 11:40 EDT QUANTIFERON TB GOLD PLUS Routine 01/04/2023 11:40 EDT documented in this encounter Results * QUANTIFERON INTERPRETATION (PERFORMABLE) (01/04/2023 11:40 EDT) [facility] Quantiferon Interpretation Negative Negative 01/06/2023 11:26 EDT [facility] Comment:No interferon-gamma response to M. tuberculosis antigens was detected. ??Infection with M. tuberculosis is unlikely. A single negative result does not exclude infection with M. tuberculosis. ??In patients at high risk for M. tuberculosis infection, a second test should be considered. TB1 Ag minus Nil 0.01 IU/ml 01/07/20 11:26 EDT [facility] TB2 Ag minus Nil 0.00 IU/mL 01/07/20 11:26 EDT [facility] Blood VENOUS BLOOD / Unknown 01/04/2023 11:40 EDT 01/06/2023 11:17 EDT Narrative [facility] - 01/06/2023 11:26 EDT Results were obtained with the [employer] QuantiFERON-TB Gold Plus CLIA. New platform in use 12/24/2020 Provider Outr Resulting Lab IMMUNOLOGY A ND SEROLOGY ORDERABLES Performing Organization Address [facility] Co de Phone Number [facility] [address] [place] [address] * QUANTIFERON MITOGEN (PERFORMABLE) (01/04/2023 11:40 EDT) Blood VENOUS BLOOD / Unknown 01/04/2023 11:40 EDT 01/05/2023 17:26 EDT Provider Outr Resulting Lab IMMUNOLOGY A ND SEROLOGY ORDERABLES Performing Organization Address City/[facility]/ZIP Co de Phone Number [facility] [address] [place] [address] * QUANTIFERON TB2 (PERFORMABLE) (01/04/2023 11:40 EDT) Blood VENOUS BLOOD / Unknown 01/04/2023 11:40 EDT 01/05/2023 17:26 EDT Provider Outr Resulting Lab IMMUNOLOGY A ND SEROLOGY ORDERABLES Performing Organization Address City/[facility] Co de Phone Number [facility] [address] [place] [address] * QUANTIFERON TB1 (PERFORMABLE) (01/04/2023 11:40 EDT) Blood VENOUS BLOOD / Unknown 01/04/2023 11:40 EDT 01/05/2023 17:26 EDT Provider Outr Resulting Lab IMMUNOLOGY A ND SEROLOGY ORDERABLES Performing Organization Address City/[facility] Co de Phone Number [facility] [address] [place] [address] * QUANTIFERON NIL (PERFORMABLE) (01/04/2023 11:40 EDT) Blood VENOUS BLOOD / Unknown 01/04/2023 11:40 EDT 01/05/2023 17:26 EDT Provider Outr Resulting Lab IMMUNOLOGY A ND SEROLOGY ORDERABLES Performing Organization Address [facility] Co de Phone Number [facility] [address] [place] [address] documented in this encounter Visit Diagnoses Not on filedocumented in this encounter Care Teams Inspector Handbag Frames Relationship Specialty Start Date End Date Yared Medina MD [address] [facility] [place] [id number] PCP - General 09/05/08 documented as of this encounter
--- OUTSIDE RECORDS SUMMARY | 2023-12-10 13:08 | XMS_ITS | Encounter Summary ---
Author Organization [facility] Address [facility] [place] [address] Care Team Providers Care Data Entry Supervisor Name Role Phone Moshe Durant IMPLANT COORDINATOR Primary Care Provider [phone] Reason for Visit * Reason Comments Allergies * Consultation (Routine) - Closed Specialty Diagnoses / Procedures Referred By Contcornel t Referred To Contact Allergy Diagnoses chronic cough Moshe Durant, IMPLANT COORDINATOR [address] [place] [address] [place] [address] [facility] Allergy [address] [place] [phone] Referral ID Status Reason Start Date Expiration Date V isits Requested Visits Authorized [id number] Closed Connection Center 06/04/2015 06/03/2016 1 1 Encounter Details Date Type Department Care Team (Late st Contact Info) Description 06/26/2015 3:00 PM EST [place] [address] Pravin Gregg MD [facility] [address] [place] [address] Mild persistent asthma without complication; Rash; Sneezing; Encounter for allergy testing; Headache(784.0); Keratosis pilaris Social History Tobacco Use Types Packs/Day Years [...] Mass Index 32.31 06/26/2015 2:28 PM EST Body Mass Index Percentile 99.25% 06/26/2015 2:2 8 PM EST Growth Chart: [facility] (Girls, 2- 20 Years) documented in this encounter Patient Instructions * Patient Instructions* Pravin Gregg MD - 06/26/2015 4:12 PM EST SKIN TESTING RESULTS Allergen (wheal & flare recorded in mm) Negative: all allergens tested Dust mites: D. Farinae (0,3), D. Pteronyssinus (0,3) Animals: Cat (0,3), Dog (0,3), AP Dog (0,3) Grass pollen: Grass mix (0,3), Uriel (0,3) Tree pollen: Tree mix (0,3), Zi (0,3), Birch (0,3), Medina (0,2), Maple (0,2), Deweese (0,2), [place] pollen: [place] mix (0,2), Ragweed (0,2), Sheep Olamide (0,2) Molds: Aspergillus (0,2), Alternaria (0,2), Penicillium (0,2), Cladosporium (0,2), Helminthosporium (0,2) Controls: Positive (5,30), Negative (0,3) Method: Single prick; Location: Back; Placed by: nurse; Reading/interpretation: MD * Reactions may still occur despite negative skin tests. Lower skin test class does NOT predict reaction severity (severe reactions may still occur with negative or low positive skin tests). Negativeskin tests to foods do not have predictive value for delayed food reactions or intolerance. Dog epithelia (valle) is low in Can f 1 but high in Can f 3; AP Dog (Branson-Vandana) dander is high in Canf 1 but low in Can f 3. Gradinmm wheal OR 10mm flare over negative control: 1+ 5mm wheal over negative control: 2+ 7mm wheal over negative control: 3+ 10mm wheal or greater over negative control: 4+ ALLERGY SEASONS & AVOIDANCE: Dust mites: Year-round, especially Fall 1. Dust mite encasings, pillow and mattress (en-Gauge) 2. Wash bedding in hot water (no hotter than 120 degrees F) 3. Humidity control, 30-50% 4. Minimize carpet and stuffed animal exposure Animals: Year-round 1. Minimize animal allergen exposure 2. Removal or -- regular baths/wiping of animal once per week -- exclusion from the bedroom -- HEPA filter in bedroom and living area -- Consider allergen pillow and mattress casings. Molds: Year-round, especially Fall 1. Remove obvious mold 2. Minimize moisture / leaks 3. Humidity control, 30-50% Pollens: Grass: Late Spring to Summer; Trees: Early Spring; Weeds: Mid Summer; Ragweed: Late Summer: [place] Mold: Late Summer to Fall 1. Nightly hair washing during pollen seasons 2. Keep windows closed, consider window a/c unit with filter 3. Do not place fans in windows 4. Do not dry clothes outside. Asthma Mild persistent asthma with regular cough and chest tightness with exercise despite Rx for Flovent 44 2 puffs twice daily (but only using this twice per week). Recommend Flovent 44 2 puffs twice daily with spacer (encouraged adherence) Recommend as needed albuterol metered dose inhaler [...] performed ever 6 months to 2 years toassess lung function. For children younger than 5 years of age, consider updating allergy skin testing at 5-6 years of age if symptoms persist. For patients receiving controller therapy, step-down inasthma controller therapy may be appropriate in patients with stable well controlled asthma Rash May represent tendency to contact dermatitis. If continued problems consider patch testing with Sneezing If bothersome may try Zytec at bedtime [...] allergen immunotherapy may be a consideration Headache(784.0) Recommend primary care follow-up Keratosis pilaris Hydrate skin and use emoilient documented in this encounter Progress Notes * Pravin Gregg MD - 06/26/2015 5:59 AM EST [facility] Section of Allergy, Asthma, and Immunology Primary Care Provider: MOSHE DURANT APRN Patient Age: 9 y.o. 9 m.o. Patient : 2005 Reason for Evaluation: asthma Historian: patient, father, grandmother HPI: Addie Springer is a 9 y.o. 9 m.o. with the following problems. The family writes on the intake form the reason for the visit as asthma, etc. # Referred for allergy testing. Seal-bark cough. No seasonality. Respites can last a couple months.Frequency not clear as bedroom was moved away from parents. Some cough noted, for example with any sports of physical education. Tries albuterol beforehand but no benefit. On demand albuterol use about twice per week for chest tightness (with cough, wheeze), some benefit. No nocturnal awakening. URIs last 2 weeks with wheezing, coughing, some dyspnea. No hx of oral steroid use, never hospitalized. No exercise intolerance. No GERD. No GERD, pneumonias, recurrent otitis Flovent 44 2p bid for years (no benefit). Actually only uses two days per week, sometimes twice daily. Uses spacer. ACT = 20 Pt reports asthma is good, a problem she doesn't like with acitivty, cough most of the time, no noccough. Dad reports 1-3 days of asthma sx and weeze, no noc sx. # Rhinitis. Sneezing daily. Denies itchy eyes, nasal drip, congestion. No meds. Worse in summer. # Rash on hair line, ? Shampoo sensitivity, improved with steroid cream last month # Keratosis pilaris - on arms # Headaches - noted several times per week No food allergies PMH: Notable for: term No past medical history on file. No past surgical history on file. Patient Active Problem List Diagnosis Code ??? Anxiety F41.9 ??? Asthma J45.909 ??? Sneezing R06.7 ??? Headache(784.0) R51 ??? Snoring R06.83 ??? Migraine with aura G43.109 ??? Keratosis pilaris L85.8 ??? Epistaxis R04.0 ??? Rash R21 ??? Encounter for allergy testing Z01.82 MEDS: Outpatient Prescriptions Marked as Taking for the 06/26/15 encounter (Office Visit) with Pravin Gregg MD Medication Sig Dispense Refill ??? penicillin v potassium (VEETID) 500 mg Tablet Twice a day ??? fluticasone (FLOVENT) 44 mcg/actuation HFA Aerosol Inhaler Twice a day ??? albuterol (PROVENTIL HFA;VENTOLIN HFA;PROAIR) 90 mcg/actuation HFA Aerosol Inhaler Every 4 hours, as needed ??? [DISCONTINUED] levalbuterol (XOPENEX HFA) 45 mcg/actuation HFA Aerosol Inhaler Every 4 hours, as needed ALLERGIES: Allergies Allergen Reactions ??? Erythromycin Base Rash Family History Problem Relation Age of Onset ??? Asthma Mother as child ??? Asthma Sister ??? Asthma Maternal Grandmother ??? Asthma Brother ??? Allergic Rhinitis Father ??? Asthma Father ??? Food Allergy Neg Hx Social History: History Social History Narrative Dad's home: 2 dogs Mom's home: hamster. Outdoor ETS ROS: Notable for: ear pain, nosebleeds, coughing, wheezing, sob, snoring, eczema, headache, anxiety All others negative. Physical Exam: Filed Vitals: 06/26/15 1428 BP: 102/56 Pulse: 94 Temp: 36.4 ??C (97.5 ??F) TempSrc: Oral Resp: 22 Height: 151 cm (4' 11.45) Weight: 73.664 kg (162 lb 6.4 oz) SpO2: 99% 99%ile based on [facility] 2-20 Years [id number] data using vitals from 06/26/2015. 56%ile based on [facility] 2-20 Years [id number] data using vitals from 06/26/2015. Normal Except General: - Nl development/ nl grooming/ nl body habitus ENT: - Conjunctivae without injection; - Tympanic membranes translucent w/ nl landmarks; - Nl nasal mucosa, septum, and turbinates; - Oropharynx well hydrated without lesions or exudates; nl teeth & gums; - Face & sinuses non-tender to palpation/percussion Mild nasal dripo Neck: - Symmetrical, no masses, trachea midline; no thyromegaly Resp: - Unlabored breathing with symmetrical with equal bilateral expansion; - Well aerated. CTA w/o wheezes, rales, or rhonchi; CV: - Regular rate and rhythm without murmur - No pedal swelling GI: - Abdomen soft without masses or hepatosplenomegaly Lymph: - No significant cervical lymphadenopathy Musculoskeletal: - Nl gait and station Extremities: - No clubbing, cyanosis, or edema Skin: - No rashes, lesions, or ulcers Small discoloration of earlobes from earings Neuro/Psych: - Nl and age appropriate mood and affect Review of Medical Records: Review of Records: Referred for evaluation of chronic cough. 04/30/15 pcp note: Seen w/ migraine with aura. Plan cyproheptadine trial. Meds include loratadine 10mg qd, albuterol prn, flovent 44 2p bid. S/p T&A.. Noc cough for years; hx of wheezing, keratosis pilaris. Hx of mild intermittent asthma, mostly EIA. 06/03/15: no real change in migraines with cyproheptadine so d/c'd. ACT 17, has not been using flovent. Noc cough for several years, stopped loratadine and referred for allergy eval. Flovent 44 2p bidrecommended. Allergy listed to erythromycin Procedures Performed: Risks and benefits of skin testing were discussed in detail with the family. The family requested skin testing to the allergens placed today. SKIN TESTING RESULTS Allergen (wheal & flare recorded in mm) Negative: all allergens tested Dust mites: D. Farinae (0,3), D. Pteronyssinus (0,3) Animals: Cat (0,3), Dog (0,3), AP Dog (0,3) Grass pollen: Grass mix (0,3), Uriel (0,3) Tree pollen: Tree mix (0,3), Zi (0,3), Birch (0,3), Medina (0,2), Maple (0,2), Deweese (0,2), [place] pollen: [place] mix (0,2), Ragweed (0,2), Sheep Olamide (0,2) Molds: Aspergillus (0,2), Alternaria (0,2), Penicillium (0,2), Cladosporium (0,2), Helminthosporium (0,2) Controls: Positive (5,30), Negative (0,3) Method: Single prick; Location: Back; Placed by: nurse; Reading/interpretation: MD * Reactions may still occur despite negative skin tests. Lower skin test class does NOT predict reaction severity (severe reactions may still occur with negative or low positive skin tests). Negativeskin tests to foods do not have predictive value for delayed food reactions or intolerance. Dog epithelia (valle) is low in Can f 1 but high in Can f 3; AP Dog (Branson-Vandaan) dander is high in Canf 1 but low in Can f 3. 06/26/2015 Spirometry: FEV1 2.38L (96 %); FVC 2.51L (89%); ratio 0.95. Normal Equipment Dispensed / Teaching Performed: mdi teaching done Assessment/Recommendations: Addie Springer is a 9 y.o. 9 m.o. with the following problems addressed today: Asthma Mild persistent asthma with regular cough and [...] performed ever 6 months to 2 years toassess lung function. For children younger than 5 years of age, consider updating allergy skin testi ng at 5-6 years of age if symptoms persist. For patients receiving controller therapy, step-down inasthma controller therapy may be appropriate in patients with stable well controlled asthma Rash May represent tendency to contact dermatitis. If continued problems consider patch testing with Sneezing If bothersome may try Zytec at bedtime [...] allergen immunotherapy may be a consideration Headache(784.0) Recommend primary care follow-up Keratosis pilaris Hydrate skin and use emoilient All questions were answered, and patient/parents expressed understanding of the plan. Thank you for the opportunity to participate in the care of your patient. Ongoing follow-up with the patient's primary care physician is recommended and encouraged. If I can provide any further assistance, please do not hesitate to contact me. Next visit (studies planned): PRN documented in this encounter Miscellaneous Notes * Assessment & Plan Note - Pravin Gregg MD - 06/26/2015 4:15 PM EST Associated Problem(s): Keratosis pilaris Hydrate skin and use emoilient * Assessment & Plan Note - Pravin Gregg MD - 06/26/2015 4:14 PM EST Associated Problem(s): Headache(784.0) Recommend primary care follow-up * Assessment & Plan Note - Pravin Gregg MD - 06/26/2015 3:32 PM EST Associated Problem(s): Sneezing If bothersome may try Zytec at bedtime [...] medications) allergen immunotherapy may be a consideration * Assessment & Plan Note - Pravin Gregg MD - 06/26/2015 3:31 PM EST Associated Problem(s): Rash May represent tendency to contact dermatitis. If continued problems consider patch testing with * Assessment & Plan Note - Pravin Gregg MD - 06/26/2015 3:28 PM EST Associated Problem(s): Asthma Mild persistent asthma with regular cough and [...] performed ever 6 months to 2 years toassess lung function. For children younger than 5 years of age, consider updating allergy skin testi ng at 5-6 years of age if symptoms persist. For patients receiving controller therapy, step-down inasthma controller therapy may be appropriate in patients with stable well controlled asthma documented in this encounter Plan of Treatment Scheduled Orders Name Type Priority Associated Diagnoses Orde r Schedule ALLERGY SKIN TEST Procedures Routine Mild persistent asthma without complication Sneezing Ordered: 06/26/2015 documented as of this encounter Procedures Procedure Name Priority Date/Time Associated Diagnosis Comments ALLERGY SCAN 07/02/2015 12:00 AM EDT PFT SCAN 07/01/2015 12:00 AM EDT documented in this encounter Results * SCAN DOC: ALLERGY (07/02/2015 12:00 AM EDT) Scanning Provider MEDIA MGR SCAN EXT O RDR/RSLT * SCAN DOC: PFT (07/01/2015 12:00 AM EDT) Scanning Provider MEDIA MGR SCAN EXT O RDR/RSLT documented in this encounter Visit Diagnoses Diagnosis Mild persistent asthma without complication Unspecified asthma Rash Rash and other nonspecific skin eruption Sneezing Other symptoms involving head and neck Encounter for allergy testing Diagnostic skin and sensitization tests Headache(784.0) Headache Keratosis pilaris Other specified congenital anomaly of skin documented in this encounter Care Teams Data Entry Supervisor Relationship Specialty Start Date End Date Moshe Durant, IMPLANT COORDINATOR [address] [address] PCP - General Family Medicine 06/06/15 documented as of this encounter
--- OUTSIDE RECORDS SUMMARY | 2023-12-10 13:08 | XMS_ITS | Encounter Summary ---
Author [facility] [place] [address] Care Team Providers Care Shale Planer Operator Name Role Phone Heather Good APRN Primary Care Provider [phone] Encounter Details Date Type Department Care Team (Late st Contact Info) Description 01/01/2020 12:05 AM EDT Ancillary Procedure [place] [id number] Heather Good APRN [address] [place] [address] [place], [place] [address] Social History Tobacco Use Types Packs/Day Years [...] Diagnosis Comments FILM LIBRARY STORAGE ONLY CT CHEST ABDOMEN PELVIS Routine 01/01/2020 12:05 AM EDT documented in this encounter Results * Film Library- Storage Only CT Chest Abdomen Pelvis (01/01/2020 12:05 AM EDT) Narrative [facility] - 01/17/2020 11:21 AM EDT This exam is auto-finalizing. It's purpose is for storage only. Heather Good APRN IMG FILM LIBRARY ORD ERABLES [facility] [place], [place] documented in this encounter Visit Diagnoses Not on filedocumented in this encounter Care Teams Shale Planer Operator Relationship Specialty Start Date End Date Heather Good, POSTAL CARRIER [address] [place] [address] PCP - General Family Medicine 06/06/15 documented as of this encounter
--- OUTSIDE RECORDS SUMMARY | 2023-12-10 13:08 | XMS_ITS | Encounter Summary ---
Author Organization [facility] Address [address] [place] [address] Care Team Providers Care Perforator Operator Name Role Phone Yared Medina MD Primary Care Provider Encounter Details Date Type Department Care Team (Late st Contact Info) Description 11/02/2022 Lab Requisition [facility] Pathology & Laboratory Medicine - [facility] [address] [place], [place] [address] Outr Resulting Lab, Provider Social History Tobacco [...] Procedure Name Priority Date/Time Associated Diagnosis Comments CHLAMYDIA/N. GONORRHOEAE AMPLIFIED NUCLEIC ACID Routine 11/01/2022 15:30 EDT documented in this encounter Results * CHLAMYDIA/N. GONORRHOEAE AMPLIFIED RNA (11/01/2022 15:30 EDT) Neisseria gonorrhoeae Result Negative Negative 11/03/2022 12:52 EDT [facility] Chlamydia trachomatis Result Negative Negative 11/03/2022 12:52 EDT [facility] Urine URINE / Unknown 11/01/2022 1 5:30 EDT 11/02/2022 17:15 EDT Narrative [facility] - 11/03/2022 12:52 EDT A first catch urine specimen is acceptable for detection of Gonorrhea and Chlamydia, but might detect up to 10% fewer infections when compared with vaginal and endocervical swab samples. Provider Outr Resulting Lab MICROBIOLOGY - GENERAL ORDERABLES [facility] [address] [place] [address] documented in this encounter Visit Diagnoses Not on filedocumented in this encounter Care Teams Perforator Operator Relationship Specialty Start Date End Date Yared Medina MD [address] [place] [phone] PCP - General 09/05/08 documented as of this encounter
--- OUTSIDE RECORDS SUMMARY | 2023-12-10 13:08 | XMS_ITS | Encounter Summary ---
Author Organization [facility] Address [address] [place] [address] Care Team Providers Care Branch Employment Coordinator Name Role Phone Yared Medina MD Primary Care Provider Encounter Details Date Type Department Care Team (Late st Contact Info) Description 12/08/2020 Lab Requisition [facility] Pathology & Laboratory Medicine - [facility] [address] [place], [place] [address] Outr Resulting Lab, Provider Social History Tobacco [...] Procedure Name Priority Date/Time Associated Diagnosis Comments HIV 1/2 ANTIGEN AND ANTIBODY, 4TH GENERATION Routine 12/08/2020 15:40 EDT documented in this encounter Results * HIV 1/2 ANTIGEN AND ANTIBODY, 4TH GENERATION (12/08/2020 15:40 EDT) HIV 1 and 2 Antibody/p24 Antigen, 4th Generation Negative Negative 12/09/2020 9:48 EDT [facility] Comment: If acute HIV-1 infection is suspected in a high risk ??patient, submit plasma specimen for HIV-1 RNA quantitation test. Fourth Generation assay performed on the Siemens Kickservaur. Blood VENOUS BLOOD / Unknown 12/08/2020 15:40 EDT 12/08/2020 20:51 EDT Provider Outr Resulting Lab IMMUNOLOGY A ND SEROLOGY ORDERABLES [facility] [address] [place] [address] documented in this encounter Visit Diagnoses Not on filedocumented in this encounter Care Teams Branch Employment Coordinator Relationship Specialty Start Date End Date Yared Medina MD [address] [place] [place] [phone] PCP - General 09/05/08 documented as of this encounter
--- OUTSIDE RECORDS SUMMARY | 2023-12-10 13:08 | XMS_ITS | Encounter Summary ---
Author Organization [facility] Address [address] [place] [address] Care Team Providers Care Environmental Marketer Name Role Phone Yared Medina MD Primary Care Provider [phone] Encounter Details Date Type Department Care Team (Late st Contact Info) Description 07/25/2007 Results Only [facility] - [facility] [address] [place], [place] [id number] Jami Hoang MD [address] [place] [address] Social History Tobacco Use Types Packs/Day Years Used Date Smoking Tobacco: Never Assessed Sex and Gender Information Value Date Recorded Sex Assigned at Not on file Gender Identity Not on file Sexual Orientation Not on file documented as of this encounter Plan of Treatment Not on file documented as of this encounter Procedures Procedure Name Priority Date/Time Associated Diagnosis Comments BACTERIAL CULTURE, URINE Routine 07/25/2007 16:17 EDT documented in this encounter Results * BACTERIAL CULTURE, URINE (07/25/2007 16:17 EDT) Specimen Description Urine [facility] Result Less than 10,000 CFU/ml Mixed gram positive growth [facility] Report Status Final [id number] [facility] 07/25/2007 16:1 7 EDT 07/25/2007 17:23 EDT Jami Hoang MD MICROBIOLOGY - GENER AL ORDERABLES [facility] [address] [place] [address] documented in this encounter Visit Diagnoses Not on filedocumented in this encounter Care Teams Environmental Marketer Relationship Specialty Start Date End Date Yared Medina MD [address] [facility] [phone] PCP - General 09/05/08 documented as of this encounter
--- OUTSIDE RECORDS SUMMARY | 2023-12-10 13:08 | XMS_ITS | Encounter Summary ---
Author Organization [facility] [place] [address] Care Team Providers Care Global Safety Officer Name Role Phone Heather Good APRN Primary Care Provider [phone] Encounter Details Date Type Department Care Team (Late st Contact Info) Description 01/01/2020 12:15 AM EDT Ancillary Procedure [place] [phone] Heather Good DOCUMENT IMAGING MANAGER [address] [place] [address] [place], [place] [address] Social History Tobacco Use Types Packs/Day Years [...] Diagnosis Comments FILM LIBRARY STORAGE ONLY DX SHOULDER Routine 01/01/2020 12:15 AM EDT documented in this encounter Results * Film Library- Storage Only DX Shoulder (01/01/2020 12:15 AM EDT) Narrative [facility] - 01/17/2020 11:24 AM EDT This exam is auto-finalizing. It's purpose is for storage only. Heather Good APRN IMG FILM LIBRARY ORD ERABLES [place], [place] documented in this encounter Visit Diagnoses Not on filedocumented in this encounter Care Teams Global Safety Officer Relationship Specialty Start Date End Date Heather Good, DOCUMENT IMAGING MANAGER [address] [place] [address] PCP - General Family Medicine 06/06/15 documented as of this encounter
--- OUTSIDE RECORDS SUMMARY | 2023-12-10 13:08 | XMS_ITS | Referral Summary ---
Author Organization [facility] Address [address] [place] [address] Care Team Providers Care Warehouse Production Worker Name Role Phone Yared Medina MD Primary Care Provider [phone] Encounters Date Type Department Care Team Description 10/18/2023 Lab Requisition [facility] Pathology & Laboratory Medicine - [facility] [address] [place] [address] Outr Resulting Lab, Provider from Last 3 Months Allergies Active Allergy Reactions Criticality Noted Date Comments Erythromycin Rash 10/08/2008 Medications No known medications Social History Tobacco Use Types Packs/Day Years [...] Mass Index - - Plan of Treatment Not on file Procedures Procedure Name Priority Date/Time Associated Diagnosis Comments VARICELLA IGG ANTIBODY Routine 10/17/2023 23:51 EDT HEPATITIS C AB W REFLEX TO HCV RNA BY PCR Today 12/08/2020 15:40 EDT from Last 3 Months or Most Recently Relevant to Health Maintenance Results * VARICELLA IGG ANTIBODY (10/17/2023 23:51 EDT) Varicella IgG Ab Equivocal See Note 10/19/2023 13:59 EDT [facility] Comment:Recommend collecting a second sample for testing in no less than one to two weeks. Blood VENOUS BLOOD / Unknown 10/17/2023 23:51 EDT 10/18/2023 17:37 EDT Provider Outr Resulting Lab IMMUNOLOGY A ND SEROLOGY ORDERABLES [facility] [address] [place] [address] * HEPATITIS C AB W REFLEX TO HCV RNA BY PCR (12/08/2020 15:40 EDT) Hep C Antibody Negative Negative 12/09/2020 8:51 EDT [facility] Blood VENOUS BLOOD / Unknown 12/08/2020 15:40 EDT 12/08/2020 20:46 EDT Provider Outr Resulting Lab CHEMISTRY & BLOOD GAS ORDERABLES [facility] [address] [place] [address] from Last 3 Months or Most Recently Relevant to Health Maintenance Care Teams Warehouse Production Worker Relationship Specialty Start Date End Date Yared Medina MD [address] [place] [phone] [facility] - General 09/05/08
--- OUTSIDE RECORDS SUMMARY | 2023-12-10 13:08 | XMS_ITS | Encounter Summary ---
Author Organization [facility] Address [address] [place] [address] Care Team Providers Care Product Communications Manager Name Role Phone Yared Medina MD Primary Care Provider [phone] Encounter Details Date Type Department Care Team (Late st Contact Info) Description 07/08/2018 Results Only [facility] [phone] Mario Nicole, DO [address] [place] [address] Social History Tobacco Use Types Packs/Day Years Used Date Smoking Tobacco: Never Assessed Sex and Gender Information Value Date Recorded Sex Assigned at Not on file Gender Identity Not on file Sexual Orientation Not on file documented as of this encounter Plan of Treatment Not on file documented as of this encounter Procedures Procedure Name Priority Date/Time Associated Diagnosis Comments SURGICAL PATHOLOGY Routine 07/08/2018 9:09 EDT documented in this encounter Results * SURGICAL PATHOLOGY (07/08/2018 9:09 EDT) Pathology Report: SURGICAL PATHOLOGY REPORT Reports generated via electronic interface contain original data; however they are lacking the format of the original report. Caution should be taken when reading/interpret ing unformatted reports. Name: ? ADDIE SPRINGER ? Accession #: ? [id number] ? : ? 2005 (Age: 12) ??F ? Collect Date: ? 07/08/2018 ? Location: ? [facility] ? Receive Date: ? 07/10/2018 ? Provider: MARIO NICOLE DO Copy to: KAYLAH DAVIS MD ? Final Pathologic Diagnosis: A. ??FALLOPIAN TUBE, LEFT, CYST, CYSTECTOMY: - Benign paratubal cyst. B. ??APPENDIX, APPENDECTOMY: - Acute appendicitis. Comment: The entire appendix was submitted for histologic examination. Dr. Balderas 07/12/2018 8:44 PM Document reviewed and electronically signed by: GEORGIE PETERSON MD Report ??Date: 07/14/2018 10:37 By the signature above, the attending physician certifies that he/she has personally conducted a gross and/or microscopic examination of the described specimens and rendered or confirmed the above diagnosis. Specimen(s) Received: A. ??Cyst from left fallopian tube B. ??Appendix Clinical History: Appendicitis Gross Description: A. ?Received in formalin labelled with proper patient identification (initials B, H) and cyst from left fallopian tube is a chapman-purple to linton cystic structure filled with chapman-yellow serous fluid (1.0 x 0.6 x 0.4 cm). The specimen is bisected and submitted entirely in A1. B. ?Received in formalin labelled with proper patient identification (initials B, H) and appendix is a vermiform appendix (4.6 cm in length x 0.6 cm in diameter), with a moderate amount of attached mesoappendix. The proximal margin is stapled. ? The serosa is chapman-linton and hyperemic. The cut surface is chapman-white to brown and focally hemorrhagic. The average wall thickness is 0.2 cm with no discernable perforation site. The lumen ranges from 0.2 cm to pinpoint in diameter and contains no fecalith. The proximal margin is inked blue. ? The section adjacent to the proximal stapled margin, two customer service representative teller cross sections and one half of the longitudinally bisected distal tip are submitted in B1. The remainder of the appendix is submitted in B2-B3. Dr. Balderas 07/11/2018 3:35 PM End of Report [facility] 07/08/2018 9:09 EDT 07/10/2018 9:09 EDT Mario Nicole DO PATHOLOGY ORDERABLES [facility] [address] [place] [place] [address] documented in this encounter Visit Diagnoses Not on filedocumented in this encounter Care Teams Product Communications Manager Relationship Specialty Start Date End Date Yared Medina MD [address] [place] [address] PCP - General 09/05/08 documented as of this encounter
--- OUTSIDE RECORDS SUMMARY | 2023-12-10 13:08 | XMS_ITS | Encounter Summary ---
Author Organization [facility] Address [address] [place] [address] Care Team Providers Care Bss Solution Architect Name Role Phone Yared Medina MD Primary Care Provider [phone] Encounter Details Date Type Department Care Team (Late st Contact Info) Description 12/08/2020 Lab Requisition [facility] Pathology & Laboratory Medicine - [facility] [address] [place], [place] [address] Outr Resulting Lab, Provider Social History Tobacco [...] Procedure Name Priority Date/Time Associated Diagnosis Comments HOLD SST Today 12/08/2020 15:40 EDT HEPATITIS C AB W REFLEX TO HCV RNA BY PCR Today 12/08/2020 15:40 EDT HEPATITIS B SURFACE ANTIGEN Today 12/08/2020 15:40 EDT documented in this encounter Results * HOLD SST (12/08/2020 15:40 EDT) Hold Hold 12/08/2020 22:01 EDT [facility] Blood VENOUS BLOOD / Unknown 12/08/2020 15:40 EDT 12/08/2020 20:46 EDT Provider Outr Resulting Lab LAB INFO SER VICE AND SUPPORT & PHONE RESULT Performing Organization Address [facility] Co de Phone Number [facility] [address] [place] [address] * HEPATITIS B SURFACE ANTIGEN (12/08/2020 15:40 EDT) Hep B Surface Ag Negative Negative 12/09/2020 11:55 EDT [facility] Blood VENOUS BLOOD / Unknown 12/08/2020 15:40 EDT 12/08/2020 20:46 EDT Provider Outr Resulting Lab CHEMISTRY & BLOOD GAS ORDERABLES Performing Organization Address [facility] Co de Phone Number [facility] [address] [place] [address] * HEPATITIS C AB W REFLEX TO HCV RNA BY PCR (12/08/2020 15:40 EDT) Hep C Antibody Negative Negative 12/09/2020 8:51 EDT [facility] Blood VENOUS BLOOD / Unknown 12/08/2020 15:40 EDT 12/08/2020 20:46 EDT Provider Outr Resulting Lab CHEMISTRY & BLOOD GAS ORDERABLES Performing Organization Address [facility] Co de Phone Number [facility] [address] [place] [address] documented in this encounter Visit Diagnoses Not on filedocumented in this encounter Care Teams Bss Solution Architect Relationship Specialty Start Date End Date Yared Medina MD [address] [facility] [place] [phone] PCP - General 09/05/08 documented as of this encounter
--- OUTSIDE RECORDS SUMMARY | 2023-12-10 13:08 | XMS_ITS | Encounter Summary ---
Author Organization [facility] Address [address] [place] [address] Care Team Providers Care Hot Knife Foxing Cutter Name Role Phone Unavailable Primary Care Provider Unavailabl e Encounter Details Date Type Department Care Team (Late st Contact Info) Description 07/25/2007 13:15 EDT Hospital Encounter [facility] [address] [place], [place] [id number] Jami Hoang MD [address] [place] [address] Discharge Disposition: Auto Discharge Social History Tobacco Use Types Packs/Day Years Used Date Smoking Tobacco: Never Assessed Sex and Gender Information Value Date Recorded Sex Assigned at Not on file Gender Identity Not on file Sexual Orientation Not on file documented as of this encounter Discharge Disposition Disposition Code Departure Means Destination Auto Discharge documented in this encounter Plan of Treatment Not on file documented as of this encounter Procedures Procedure Name Priority Date/Time Associated Diagnosis Comments RAD US RETROPERITONEAL COMPLETE 07/25/2007 13:54 EDT documented in this encounter Results * RAD US RETROPERITONEAL COMPLETE (07/25/2007 13:54 EDT) Anatomical Region Laterality Modality Other 07/25/2007 13:5 4 EDT Narrative 09/29/2008 10:25 EDT bilateral vesicoureteral reflux History: bilateral vesicoureteral reflux Comparison: None. Findings: Ultrasound imaging of the kidneys and bladder was performed. The right kidney measures 7.7 cm in length and has normal corticomedullary differentiation. There is no hydronephrosis, stone or mass. The left kidney measures 7.9 cm in length and has normal corticomedullary differentiation. There is no hydronephrosis, stone or mass. Single collecting systems are present bilaterally. The ??study was performed with a normal appearing, full urinary bladder. There is a minimal post void residual. Impression: Normal renal and bladder ultrasound. Procedure Note Uriel Larose MD - 09/29/2008 bilateral vesicoureteral reflux History: bilateral vesicoureteral reflux Comparison: None. Findings: Ultrasound imaging of the kidneys and bladder was performed. The right kidney measures 7.7 cm in length and has normal corticomedullary differentiation. There is no hydronephrosis, stone or mass. The left kidney measures 7.9 cm in length and has normal corticomedullary differentiation. There is no hydronephrosis, stone or mass. Single collecting systems are present bilaterally. The study was performed with a normal appearing, full urinary bladder. There is a minimal post void residual. Impression: Normal renal and bladder ultrasound. Jami Hoang MD IMG US ORDERABLES documented in this encounter Visit Diagnoses Not on filedocumented in this encounter
--- OUTSIDE RECORDS SUMMARY | 2023-12-10 13:08 | XMS_ITS | Encounter Summary ---
Author Organization [facility] Address [address] [place] [address] Care Team Providers Care Winder Hand Name Role Phone Yared Medina MD Primary Care Provider [phone] Encounter Details Date Type Department Care Team (Late st Contact Info) Description 03/23/2005 Before PRISM Converted Visit (Maple) [facility] - Maple conversion [address] [place], [place] [address] Jami Hoang MD [address] [place] [address] Social History Tobacco Use Types Packs/Day Years Used Date Smoking Tobacco: Never Assessed Sex and Gender Information Value Date Recorded Sex Assigned at Not on file Gender Identity Not on file Sexual Orientation Not on file documented as of this encounter Consult Notes * Jami Hoang MD - 06/19/2009 0311 EST CONSULTATION - 03/23/2005 March 23, 2005 [place] [address] Dear Yared: It was a pleasure to meet Addie with her mom, dad, and little brother in clinic today for consultation about Addie's recently diagnosed febrile UTI and subsequently diagnosed bilateral VU reflux. Addie's parents tell me that through her first year of life she did have multiple episodes of low-grade fever which they attributed to teething. In November, she had a similar episode with low-grade fever for some number of days perhaps 2-4 days after which she developed a sudden fever spike to about 104. She looked limp and had poor color. [place] brought [place] in [place] where UTI wasdiagnosed, and she was started on Bactrim p.o. It looks from your note as if she perhaps took 2 teaspoons b.i.d. at first. Her fever resolved quickly within one day, and she returned to her usual very active healthy state. She has not had any subsequent big fevers although her parents think tasha has had low- grade fevers because of teething since then. She has not had any particular irritability, vomiting, or poor color, and her potty training is actually proceeding with her beginning to be somewhat cooperative. Her parents say that Addie has over the past month or two had very hard stools. They are apparently painfuland are covered with blood at times. They have tried Milk of Magnesia every three days but her stools have not softened at all. It is pretty difficult for them to manipulate her diet for any purpose at all as she is quite a willful [id number]. On physical exam, her height is 83.6 cm, weight 11.99 kg and head circumference 46.5 cm. She reallyis quite uncooperative and is so difficult that we were really unable to get a reasonable blood pressure measurement today which is unusual in our clinic. I ampretty happy that her mom is able to getAddie's daily trimethoprim sulfa into her. Addie remains on trimethoprim sulfa 1 teaspoon once daily for prophylaxis. I did review Addie's images from [facility]. I think that an appropriate course of action here would be to continue as you are doing with trimethoprim sulfa 1 teaspoon once daily for prophylaxis. Addie should have a urine culture whenever she has fever. I have reiterated that to her parents. She should also have her stool softened. I gave them a prescription for MiraLax 17 grams once daily in juice and asked them to decrease the dose if her stools become too loose on the full dose but not to stop the medication. Her stools should be maintained in a softened state until well through potty trainingand until her reflux issue is resolved. I have asked them to return next fall at which time we will do a renal ultrasound to follow renal growth. If there have been any suggestions of or confirmed UTIs between now and then, we should include a sedated VCUG at that time as well. It was a pleasure to meet Addie and participate in her care. Sincerely, Signed by Jami Hoang MD 03/30/2005 18:51 Ted Hoang [facility] [id number] P Guillot, MD Jami Hoang MD Division of Pediatric Nephrology [phone] - Jami Hoang MD P - o9 Job ID: [id number] Document ID: [id number] cc: Yared Medina MD documented in this encounter Plan of Treatment Not on file documented as of this encounter Visit Diagnoses Not on filedocumented in this encounter Care Teams Winder Hand Relationship Specialty Start Date End Date Yared Medina MD [address] [place] [phone] PCP - General 09/05/08 documented as of this encounter
--- OUTSIDE RECORDS SUMMARY | 2023-12-10 13:08 | XMS_ITS | Encounter Summary ---
Author Organization [facility] Address [address] [place] [address] Care Team Providers Care Scrap Burner Name Role Phone Yared Medina MD Primary Care Provider [phone] Encounter Details Date Type Department Care Team (Late st Contact Info) Description 01/08/2021 Lab Requisition [facility] Pathology & Laboratory Medicine - [facility] [address] [place], [place] [address] Outr Resulting Lab, Provider Social History Tobacco [...] Comments CHLAMYDIA/N. GONORRHOEAE AMPLIFIED NUCLEIC ACID Routine 01/07/2021 13:30 EDT documented in this encounter Results * CHLAMYDIA/N. GONORRHOEAE AMPLIFIED RNA (01/07/2021 13:30 EDT) Neisseria gonorrhoeae Result Negative Negative 01/09/2021 14:21 EDT [facility] Chlamydia trachomatis Result Negative Negative 01/09/2021 14:21 EDT [facility] Urine URINE / Unknown 01/07/2021 1 3:30 EDT 01/08/2021 16:24 EDT Narrative [facility] - 01/09/2021 14:21 EDT A first catch urine specimen is acceptable for detection of Gonorrhea and Chlamydia, but might detect up to 10% fewer infections when compared with vaginal and endocervical swab samples. Provider Outr Resulting Lab MICROBIOLOGY - GENERAL ORDERABLES [facility] [address] [place] [address] documented in this encounter Visit Diagnoses Not on filedocumented in this encounter Care Teams Scrap Burner Relationship Specialty Start Date End Date Yared Medina MD [address] [place] [phone] PCP - General 09/05/08 documented as of this encounter
--- OUTSIDE RECORDS SUMMARY | 2023-12-10 13:08 | XMS_ITS | Encounter Summary ---
Author Organization [facility] Address [address] [place] [address] Care Team Providers Care Drug Room Clerk Name Role Phone Yared Medina MD Primary Care Provider Encounter Details Date Type Department Care Team (Late st Contact Info) Description 10/18/2023 Lab Requisition [facility] Pathology & Laboratory Medicine - [facility] [address] [place], [place] [address] Outr Resulting Lab, Provider Social History Tobacco [...] VARICELLA IGG ANTIBODY Routine 10/17/2023 23:51 EDT documented in this encounter Results * VARICELLA IGG ANTIBODY (10/17/2023 23:51 EDT) Varicella IgG Ab Equivocal See Note 10/19/2023 13:59 EDT [facility] Comment:Recommend collecting a second sample for testing in no less than one to two weeks. Blood VENOUS BLOOD / Unknown 10/17/2023 23:51 EDT 10/18/2023 17:37 EDT Provider Outr Resulting Lab IMMUNOLOGY A ND SEROLOGY ORDERABLES [facility] [address] [place] [address] documented in this encounter Visit Diagnoses Not on filedocumented in this encounter Care Teams Drug Room Clerk Relationship Specialty Start Date End Date Yared Medina MD [address] [place] [phone] PCP - General 09/05/08 documented as of this encounter
[2023-12-10 16:44] LABS: Bilirubin Negative (Negative); Blood Moderate (Negative); Clarity Clear (Clear); Glucose Negative (Negative); Ketones Negative (Negative); Leukocyte Esterase Negative (Negative); Nitrite Negative (Negative); Urobilinogen 0.2 mg/dL (Up to 0.2)
[2023-12-10 16:50] LABS: Bacteria Few HPF (Negative); C & S Indicated? C&S Done As Ordered; Casts Negative LPF (Negative); Crystals Negative HPF (Negative); Epithelial Cells Few HPF (Negative); Mucus Trace (Negative)
== END 2023-12-10 13:06 | disposition home or self-care (01) ==
LOC: LBN 13:05
PROVIDERS: PCP Advanced Practice Midwife; Visit Provider Family Medicine
DX: N39.0 Urinary tract infection, site not specified (principal); R30.0 Dysuria
CPT/HCPCS: 81003; 81015; 87086

== ENCOUNTER 2024-08-21 12:21 | Outpatient (REF) | payer MEDICAID, SELFPAY ==
[2024-08-22 12:04] LABS: Chlamydia Result Negative (Negative); GC Result Negative (Negative)
== END 2024-08-21 12:22 | disposition home or self-care (01) ==
LOC: LBN 12:21
PROVIDERS: PCP Advanced Practice Midwife; Visit Provider Obstetrics & Gynecology
DX: N89.8 Other specified noninflammatory disorders of vagina (principal)
CPT/HCPCS: 87491; 87591; 87480; 87510; 87660